=== PATIENT | male | born 1930 | race Caucasian/White ===

== ENCOUNTER 2017-05-24 09:52 | Inpatient (IN) ==
[2017-05-24] MEDS ORDERED: SALINE LOCK IV FLUID XX ONE (11:46)
[2017-05-24] MEDS ORDERED: PNEUMOVAX 23 IM ONE (12:15)
--- NOTE | 2017-05-24 12:15 | Diag Imaging Result Doc PS360 ---
EXAM: CHEST-1 VIEW HISTORY: dyspnea TECHNIQUE: Portable COMPARISON: 01/26/2015 FINDINGS: There is a left-sided pacemaker and there are sternal wires. The heart is enlarged. There is a dense infiltrate in the mid left lung. The vessels are not distended. No pleural effusions identified. IMPRESSION: Pneumonia in the mid left lung. Follow-up films recommended. Electronically signed by Booker Solorio 05/24/2017 12:13 PM
[2017-05-24 12:58] LABS: BASO% 0.1 % (0.0-0.8); HEMATOCRIT 32.5 % (42.0-52.0); HEMOGLOBIN 11.2 g/dL (14.0-18.0); IMM GRAN# 0.12 X1000 (0.0-0.04); IMM GRAN% 0.7 % (0.0-0.5); LYMPH# 0.47 X1000 (1.2-3.4); LYMPH% 2.8 % (20.5-51.1); MANUAL DIFF NEEDED? YES; MCH 31.1 PG (27-31); MCHC 34.5 g/dL (33-37); MCV 90.3 FL (81-99); MONO# 0.88 X1000 (0.11-0.59); MONO% 5.3 % (1.7-9.3); MPV 9.5 FL (7.4-10.4); NEUT% 91.1 % (42.2-75.2); PLT 205 X1000 (130-400)
[2017-05-24 13:28] LABS: ALBUMIN 3.5 g/dL (3.5-5.0); CALCIUM 9.3 mg/dL (8.8-10.2); POTASSIUM 4.2 mmol/L (3.5-5.1); TOTAL BILIRUBIN 0.4 mg/dL (0.20-1.00); TOTAL PROTEIN 6.4 g/dL (6.3-8.3)
[2017-05-24 13:54] LABS: LYMPHS 8 % (21-51); MONO 1 % (1-9)
[2017-05-24] MEDS ORDERED: LEVAQUIN 250 MG/D5W 250 MG/50 ML IVPB IV SCH (14:30)
[2017-05-24 14:51] LABS: URINE MICRO REVIEW NEEDED? NO; URINE SOURCE VOIDED
[2017-05-24 14:57] LABS: BILIRUBIN URINE NEGATIVE (NEGATIVE); BLOOD URINE NEGATIVE (NEGATIVE); COLOR STRAW; GLUCOSE URINE NEGATIVE (NEGATIVE); LEUKOCYTES URINE NEGATIVE (NEGATIVE); NITRITE URINE NEGATIVE (NEGATIVE); PROTEIN URINE NEGATIVE (NEGATIVE); SP GRAVITY URINE 1.008; TURBIDITY URINE CLEAR (CLEAR); UROBILINOGEN URINE NORMAL (NORMAL)
[2017-05-24 15:00] LABS: UR EPITHELIAL CELLS <10 /HPF (<10); URINE BACTERIA NEGATIVE /HPF; URINE RBC <10 /HPF (<10); URINE WBC <10 /HPF (<10)
--- NOTE | 2017-05-24 15:30 | Diag Imaging Result Doc PS360 ---
EXAM: US RENAL 2 (RETROPER) COMPLETE HISTORY: decreased renal function TECHNIQUE: COMPARISON: None. FINDINGS: The right kidney measures 11.9 x 4.6 x 5.0 cm. Borderline mild increased echogenicity. No stone or hydronephrosis. There is a 1.2 cm cyst in the upper pole. Urinary bladder is normal moderately distended and appears normal. The left kidney measures 10.5 x 5.3 x 5.3 cm. Borderline mild increased echogenicity. No stone or hydronephrosis. No renal mass. IMPRESSION: Borderline mild increased echogenicity, otherwise normal exam. Electronically signed by Booker Solorio 05/24/2017 3:28 PM
--- NOTE | 2017-05-24 15:34 | CONSULTATION ---
DATE OF CONSULTATION: 05/24/2017 REASON FOR ADMISSION: Pneumonia, edema, acute kidney injury. REASON FOR CONSULTATION: Acute kidney injury, edema. CONSULTING PHYSICIAN: Dr. Durga Evangelista. HISTORY OF PRESENT ILLNESS: This is an 86-year-old gentleman admitted to the hospital secondary to shortness of breath, weakness, worsening edema over several days. He fell about 3 weeks ago and has been doing poorly since. Laboratory on admission indicated that he had a white count of 16.6, a sodium of 132, a BUN 162 creatinine of 3.1. He had a chest x-ray that showed pneumonia in the mid left lung. We have been asked to see him for his edema and worsening renal function. The only other creatinine we have available in the system he is one from 2015 where his creatinine was 2.1. The patient has never been told that he has chronic kidney disease or renal insufficiency. He states that he has been given medicine "to help his kidneys". States that over the last month he has been having worsening edema and has had multiple visits to his primary with no resolution. He states that he has become simply too weak to walk and he gets dizzy when he stands up and over the last several days has just really lost his appetite and is only eating bites occasionally. He states that he still has adequate urine output. He has noticed worsening swelling of the lower extremities as well as edema to his abdomen, stating that he could not button his pants today and last week he could. Complains of shortness of breath and a cough. No chest pain. No dizziness when standing. He has not had any loss of consciousness. PAST MEDICAL HISTORY: Hypertension. Atrial fibrillation. He has a hernia. He has chronic edema. Gout. BPH. Hyperlipidemia. CABG. Cardiomegaly. ALLERGIES: No known drug allergies. HOME MEDICATIONS: Norel. Naproxen sodium. Methocarbamol. Hydrocodone. Acetaminophen. Isosorbide. Lasix. Plavix. Metoprolol. Uloric. Spironolactone. Rosuvastatin calcium. Prednisone. Klor-Con. Flonase. Flomax. FAMILY HISTORY: Noncontributory. SOCIAL HISTORY: He is a former smoker. No current ETOH or illicit drug use. He has a son who is in attendance with him today. REVIEW OF SYSTEMS: Pertinent positives noted above in the HPI. PHYSICAL EXAMINATION: Vital Signs: Temperature 97.4 degrees, pulse 66, respiratory rate 17, blood pressure 99/42, intake and output have not been measured. General: This is an ill- appearing elderly gentleman sitting up in bed. He is awake, alert, able to give appropriate history. HEENT: Normocephalic, atraumatic. Conjunctivae are pale. Oral mucosa is moist. Neck: Supple. Trachea midline. JVD noted in a reclined position. Cardiovascular: Reveals a regular rate and rhythm. There is no murmur appreciated. He has some decreased heart sounds noted. Pulmonary: He has some rales bilaterally. No wheeze. He has equal excursion. Abdomen: Round, distended, soft. Positive bowel sounds. Positive fluid hepatojugular wave. : Not inspected. He is voiding. Extremities: He has 2+ pretibial edema. He has 3+ pedal edema and some dependent edema to the backs of the thighs. Integumentary: Skin is warm and dry. Pale. Thin. Neurologic: Grossly nonfocal. LABORATORY DATA: WBC of 16.6, hemoglobin 11.2, hematocrit 32.5 and platelet count of 205,000. Sodium 132, potassium 4.2, CO2 26, BUN 162, creatinine 3.1. IMAGING: Pneumonia right mid left lung. ASSESSMENT AND PLAN: 1. Acute kidney injury overlying CKD. Unclear of the patient's baseline creatinine. The only laboratory value we have is from 2 years ago with an abnormal creatinine of 2.1. We will attempt to obtain records from Dr. Evangelista office. The patient is to go for a renal ultrasound today. We will go ahead and order urine studies to stratify his current renal function and possible proteinuria. Check an albumin . Of note, he has an extremely elevated BUN with no real clear etiology. He has no absolute indication for intervention at this time. We will have the following workup as noted and check laboratory in the morning. 2. Pneumonia. He is on Levaquin q. 24 hours With current renal function, his Levaquin should q. 48. 3. Edema. He has some significant peripheral edema as well as what appears to be ascites. He has a normal AST and ALT. His albumin is 3.5. He normally takes Lasix 40 mg twice a day. 4. Electrolytes, acid-base balance. These are acceptable. Thank you for the consult. Dictated by KAT Bermeo for Mark Saucedo MD Patient seen, data reviewed, discussed with Karin Sheppard on 05/24/17. I agree with the above assessment and plan of care. cc: MD Durga Villatoro MD [facility]
[2017-05-24 15:38] LABS: UR CREAT RANDOM 32.8 mg/dL (14-26); UR PROT RANDOM < 4.0 mg/dL; UR SODIUM 80 mmoll
[2017-05-24] MEDS: NORCO-7.5 PO PRN (16:05)
--- NOTE | 2017-05-24 16:13 | EKG Report ---
Test Performed on : 05/24/2017 1:13:27 PM Test Reason : dyspnea Blood Pressure : / mmHG Vent. Rate : 080 BPM Atrial Rate : 088 BPM P-R Int : 000 ms QRS Dur : 168 ms QT Int : 428 ms P-R-T Axes : 000 176 017 degrees QTc Int : 493 ms Atrial fibrillation. Right bundle branch block Possible Lateral infarct , age undetermined Inferior infarct (cited on or before 09-APR-2008) Abnormal ECG When compared with ECG of 09-APR-2008 01:23, Questionable change in QRS axis Nonspecific T wave abnormality now evident in Anterior leads Confirmed by Juan Pablo Moore DO ([id number]) on 05/27/2017 8:33:07 AM
--- NOTE | 2017-05-24 18:18 | HISTORY AND PHYSICAL ---
CHIEF COMPLAINT: Extreme weakness, dark bowel movement, shortness of breath. PRESENT ILLNESS: This is one of several [facility] admissions for this 86-year-old, white man with known coronary artery disease, atrial fibrillation, COPD, and acute renal failure who had a dark bowel movement last evening and presented to the office today. He had 3+ ankle edema and was in a wheelchair. He was too weak to stand. He is admitted for further evaluation and treatment. There is history of coronary artery bypass grafting in 2009. He had angioplasty and stenting of the left circumflex and distal left main. These were performed with bare metal stents. He has a pacemaker that was checked in February 2017 and was functioning appropriately. There is history of 5 cm abdominal aortic aneurysm. PAST MEDICAL HISTORY: No recent hospitalizations or surgery. PRESENT MEDICATIONS: Metoprolol 50 mg ER 1 daily, isosorbide 30 mg 1 daily, Lasix 40 mg b.i.d., Klor-Con 10 mEq b.i.d., Crestor 20 mg at bedtime, Coolin 5/325 q.4 hours p.r.n. pain, and prednisone 10 mg once daily. ALLERGIES: None known. REVIEW OF SYSTEMS: Significant for increasing BUN and creatinine over the past few months. In November his BUN was 60 and creatinine 2.0. On 04/04/2017 his BUN was 84, creatinine 2.2. On 05/08/2017 BUN was 113, creatinine 3.3. He has had persistent 3+ ankle edema over the past month. He fell a couple of weeks ago and complained with right hip pain. He was tender in the right SI joint and was given Depo-Medrol and Marcaine on 05/18. There was improvement for about 4 days and then he called complaining of increased pain. Prednisone was started at that time. He had a dark bowel movement early this morning. This could have been related to the prednisone. Hemoglobin in the office was 10.6. FAMILY HISTORY: Significant for hypertension and heart disease. SOCIAL HISTORY: He is single, a , and lives alone. He continues to smoke despite contrary advice. There is no history of recent alcohol usage. DIAGNOSTIC DATA: Chest x-ray revealed left lower lobe infiltrate. White blood count was elevated at 16,700 with 91% neutrophils. PHYSICAL EXAMINATION: VITAL SIGNS: Temperature 98.3 degrees, heart rate 84, respirations 17, blood pressure 101/58. Pressure in the office was 80/60. O2 saturation on room air is 98%. HEENT: He wears glasses. Tympanic membranes without inflammation. Pharynx benign. NECK: Supple with no mass or lymphadenopathy. HEART: Regular in rate and rhythm with no murmur, rub or gallop. LUNGS: No appreciable rales. ABDOMEN: Soft with no mass, tenderness, or organomegaly. EXTREMITIES: 3+ ankle edema. RECTAL AND GENITALIA: Deferred. IMPRESSION: Acute renal failure, chronic renal disease stage 3, left lower lobe pneumonia, melena, possible gastritis related to prednisone, atrial fibrillation, coronary artery disease, COPD, abdominal aortic aneurysm. PLAN: Admit for treatment with intravenous antibiotics, and renal consult for evaluation of decreasing renal function. cc: Durga Evangelista MD
[2017-05-24] MEDS: RESTORIL PO PRN (21:11)
[2017-05-25 07:32] LABS: CALCIUM 9.1 mg/dL (8.8-10.2)
[2017-05-25] MEDS ORDERED: NS 1,000 ML IV SCH (07:42)
--- NOTE | 2017-05-25 08:31 | PROGRESS NOTE ---
DATE: 05/25/2017 VITAL SIGNS: Vital signs stable with temperature 97.4 degrees, heart rate 69, respiration 19, blood pressure 108/51, O2 saturation on room air 96%. LABORATORY: Hematocrit 30.5. Sodium 131, potassium 4.0, BUN 166, creatinine 2.6. GFR estimated 24. Glucose 108, phosphorus 5.4, albumin 3.0. SUBJECTIVE: The patient is having no respiratory difficulty. Lungs are clear to auscultation. Edema is decreased with less edema on the left. There is still pitting change in his ankles and lower tibial area bilaterally. Discussion is made with the radiologists concerning imaging study to evaluate the renal arteries with his history of aortic aneurysm. Renal artery ultrasound is ordered. cc: Durga Evangelista MD
[2017-05-25] MEDS ORDERED: IMDUR PO SCH ×2 (09:00)
[2017-05-25] MEDS: PLAVIX PO SCH (09:25)
[2017-05-25] MEDS: NORCO-7.5 PO PRN (09:25)
--- NOTE | 2017-05-25 11:50 | PROGRESS NOTE ---
DATE: 05/25/2017 SUBJECTIVE: He is perhaps a little confused today. He states he feels better overall, though. No nausea or vomiting. No shortness of breath. OBJECTIVE: Vital Signs: Blood pressure 96/55, heart rate 89, respirations 17. Afebrile. Intake 360 mL. Output 325 mL. General: No acute distress. Skin: Warm and dry. HEENT: Conjunctivae are pink. Pupils are equal. Neck: Neck veins are not appreciated. Trachea is midline. Heart: Regular without gallops. Lungs: Have equal breath sounds. No crackles or wheezes. Abdomen: Soft, nontender. Bowel sounds are present. Extremities: Have 1+ edema. No clubbing or cyanosis. LABORATORY/DIAGNOSTIC DATA: Sodium 131, potassium 4.0, chloride 90, bicarbonate 26, BUN 166, creatinine 2.6. Hemoglobin 11.2. Renal ultrasound: Right kidney 11.9 cm. Left kidney 10.5 cm. IMPRESSION: 1. Acute kidney injury. Questionable baseline chronic kidney disease. His ultrasound looked normal. His labs are improved overnight. We will allow him to get 1 L of normal saline today and then observe his response. His urine studies demonstrate no proteinuria and his urine sodium was elevated at 80. Therefore, not supportive of intravascular volume depletion. 2. Elevated BUN. Presumably related to bleeding. Hemoglobin has dropped only modestly since admission. Stool guaiac is pending. cc: MD Durga Villatoro MD
--- NOTE | 2017-05-25 12:00 | Diag Imaging Result Doc PS360 ---
EXAM: DUPLEX RENAL ARTY OR VEIN LMTD HISTORY: worsening renal function TECHNIQUE: COMPARISON: None. FINDINGS: Limited duplex renal artery exam due to the patient's large size. The kidneys are borderline slightly hyperechoic and there are scattered scattered cysts similar to the prior study. No hydronephrosis. No solid mass. IMPRESSION: Limited exam due to the patient's body habitus. Incomplete imaging of the renal arteries. Electronically signed by Booker Solorio 05/25/2017 11:58 AM
[2017-05-25] MEDS: DUONEB (A & A) INH PRN ×2 (15:16→20:28)
[2017-05-26] MEDS: NORCO-7.5 PO PRN ×3 (01:42→21:12)
[2017-05-26] MEDS: DUONEB (A & A) INH PRN ×3 (01:51→15:20)
[2017-05-26 06:57] LABS: EOS# 0.02 X1000 (0.0-0.7); EOS% 0.2 % (0.0-10.0); HEMATOCRIT 28.1 % (42.0-52.0); HEMOGLOBIN 9.5 g/dL (14.0-18.0); IMM GRAN% 0.8 % (0.0-0.5); LYMPH# 0.52 X1000 (1.2-3.4); LYMPH% 4.3 % (20.5-51.1); MANUAL DIFF NEEDED? YES; MCH 30.6 PG (27-31); MCHC 33.8 g/dL (33-37); MCV 90.6 FL (81-99); MONO# 0.95 X1000 (0.11-0.59); MONO% 7.9 % (1.7-9.3); MPV 9.9 FL (7.4-10.4); NEUT% 86.8 % (42.2-75.2); PLT 186 X1000 (130-400)
[2017-05-26 07:21] LABS: CALCIUM 8.8 mg/dL (8.8-10.2); POTASSIUM 3.6 mmol/L (3.5-5.1)
[2017-05-26 07:27] LABS: BANDS 4 % (0-1); LYMPHS 4 % (21-51); MONO 4 % (1-9)
[2017-05-26] MEDS ORDERED: NS 1,000 ML IV ONE (09:08)
[2017-05-26] MEDS ORDERED: MILK OF MAGNESIA PO ONE (12:05)
[2017-05-26] MEDS: PLAVIX PO SCH (12:33)
--- NOTE | 2017-05-26 13:14 | Diag Imaging Result Doc PS360 ---
EXAM: CHEST-1 VIEW INDICATION: pneumonia TECHNIQUE: One view COMPARISON: 05/24/2017 FINDINGS: The dense infiltrate at the mid to upper left lung zone is stable. There are no new consolidations. Cardiac silhouette is stable. IMPRESSION: Stable chest. Electronically signed by Carl Lazar 05/26/2017 1:12 PM
--- NOTE | 2017-05-26 13:29 | PROGRESS NOTE ---
DATE: 05/26/2017 SUBJECTIVE: He is still complaining of pain in the left hip. He has not been out of bed. He has not had a bowel movement since she came into the hospital. No chills or fevers. He has been able eat his lunch. OBJECTIVE: Vital Signs: Blood pressure 94/52, heart rate 107, respirations 20, afebrile. Intake 600 mL. Output 1.6 L. PHYSICAL EXAMINATION: General: No acute distress. Skin: Warm and dry. Eyes: Conjunctivae are pink and moist. Neck: Neck veins are not distended. Oropharynx is dry. Heart: Regular with an S4. No S3. No murmurs. Lungs: Have equal breath sounds. No crackles or wheezes. Abdomen: Soft, nontender. Bowel sounds are present. Extremities: Have 1+ edema primarily around the hips and the elbows. No clubbing or cyanosis. LABORATORY DATA: Sodium 134, potassium 3.6, chloride 93, bicarbonate 28, BUN 143, creatinine 2.3. Hemoglobin 9.5. IMPRESSION: 1. Transient hypotension overnight. Improved. He is receiving IV fluids and we will observe his response. 2. Fall in hemoglobin. He has not had any bowel movement, so it is unlikely that this is a large gastrointestinal bleed. 3. Acute kidney injury. BUN and creatinine are progressively improving. cc: MD Durga Villatoro MD
[2017-05-26] MEDS ORDERED: LEVAQUIN 250 MG/D5W 250 MG/50 ML IVPB IV SCH (16:00)
[2017-05-26] MEDS ORDERED: CALMOSEPTINE OINTMENT TOP PRN (18:26)
[2017-05-26] MEDS: RESTORIL PO PRN (20:36)
[2017-05-26] MEDS: NS 1,000 ML IV SCH (20:58)
[2017-05-26] MEDS: MIRALAX PO SCH (20:58)
[2017-05-27] MEDS: NORCO-7.5 PO PRN ×3 (06:54→20:36)
[2017-05-27 07:08] LABS: MANUAL DIFF NEEDED? NO
[2017-05-27 07:43] LABS: BASO% 0.1 % (0.0-0.8); EOS# 0.06 X1000 (0.0-0.7); EOS% 0.5 % (0.0-10.0); HEMATOCRIT 27.1 % (42.0-52.0); HEMOGLOBIN 8.9 g/dL (14.0-18.0); IMM GRAN# 0.17 X1000 (0.0-0.04); IMM GRAN% 1.5 % (0.0-0.5); MCH 30.5 PG (27-31); MCHC 32.8 g/dL (33-37); MCV 92.8 FL (81-99); MONO# 0.97 X1000 (0.11-0.59); MONO% 8.3 % (1.7-9.3); NEUT% 83.6 % (42.2-75.2); PLT 207 X1000 (130-400); RBC 2.92 XMIL (4.7-6.1)
[2017-05-27 07:50] LABS: ALBUMIN 2.7 g/dL (3.5-5.0); CALCIUM 9.4 mg/dL (8.8-10.2); POTASSIUM 4.2 mmol/L (3.5-5.1)
[2017-05-27] MEDS: NS 1,000 ML IV SCH ×3 (08:31→20:37)
[2017-05-27] MEDS ORDERED: DULCOLAX PR ONE (09:27)
[2017-05-27] MEDS: IMDUR PO SCH (10:35)
[2017-05-27] MEDS: DUONEB (A & A) INH PRN ×3 (12:39→20:54)
[2017-05-27] MEDS: RESTORIL PO PRN (20:36)
[2017-05-28] MEDS: MIRALAX PO SCH ×2 (03:25→21:14)
[2017-05-28] MEDS: NS 1,000 ML IV SCH (03:26)
[2017-05-28 06:55] LABS: MANUAL DIFF NEEDED? NO
[2017-05-28] MEDS: DUONEB (A & A) INH PRN ×2 (07:20→21:12)
[2017-05-28 07:22] LABS: BASO% 0.2 % (0.0-0.8); EOS# 0.04 X1000 (0.0-0.7); EOS% 0.3 % (0.0-10.0); HEMATOCRIT 27.3 % (42.0-52.0); HEMOGLOBIN 8.8 g/dL (14.0-18.0); IMM GRAN# 0.25 X1000 (0.0-0.04); LYMPH# 0.59 X1000 (1.2-3.4); LYMPH% 4.7 % (20.5-51.1); MCH 30.7 PG (27-31); MCHC 32.2 g/dL (33-37); MCV 95.1 FL (81-99); MONO# 0.99 X1000 (0.11-0.59); MONO% 7.8 % (1.7-9.3); PLT 209 X1000 (130-400); RBC 2.87 XMIL (4.7-6.1)
[2017-05-28 07:37] LABS: POTASSIUM 4.2 mmol/L (3.5-5.1)
--- NOTE | 2017-05-28 07:44 | Diag Imaging Result Doc PS360 ---
CHEST-PORTABLE - 05/28/2017 INDICATION: Pneumonia TECHNIQUE: COMPARISON: 05/26/2017 FINDINGS: Stable pacemaker. Stable sternotomy wires. Stable focal airspace opacity in the left midlung with some infiltrate in the left lung base. There is a trace right pleural effusion stable from prior. Stable cardiomegaly and pulmonary vascular congestion. IMPRESSION: No change from prior. Electronically signed by Joaquin Serrano 05/28/2017 7:42 AM
[2017-05-28] MEDS ORDERED: AYR NASAL SPRAY NAS PRN (08:31)
--- NOTE | 2017-05-28 08:37 | PROGRESS NOTE ---
DATE: 05/28/2017 VITAL SIGNS: Temperature 96.9 degrees, heart rate 90, respirations 20, blood pressure 130/70. Is and Os: Negative 1150 in the last 24 hours. LABORATORY: Hemoglobin 8.8, hematocrit 27.3, white blood count 12,600. Sodium 137, potassium 4.2, BUN 72, creatinine 1.6, glucose 110, albumin 3. Chest x-ray reveals persistent left pneumonia. IMPRESSION: The patient is short of breath with activity and getting up out of bed. PLAN: Continue IV Levaquin. Stool for blood was positive. Plan to continue to increase activity with physical therapy. cc: Durga Evangelista MD
[2017-05-28] MEDS: IMDUR PO SCH (08:53)
[2017-05-28] MEDS: HEMOCYTE PLUS CAPSULE PO SCH (08:53)
--- NOTE | 2017-05-28 12:16 | PROGRESS NOTE ---
DATE: 05/28/2017 TIME SEEN: 05/22. SUBJECTIVE: Mr. Topete is resting quietly in bed. He remains alert and oriented. He denies chest pain or increased work of breathing. He has finished his breakfast this morning. OBJECTIVE: His most recent vital signs are temperature 98.1 degrees, blood pressure 106/60, heart rate 108, respirations 16. He is on room air. Last recorded saturation 94%. He has had 800 in. He has had 1950 out per void. LABORATORY: Sodium 137, potassium 4.2, chloride 100, CO2 27, BUN 72, creatinine 1.6, glucose 110, anion gap 10, calcium 9, phosphorus 2.5, albumin 3, white count 12.64. Hemoglobin 8.8, hematocrit 27.3 with a platelet count of 209,000. PHYSICAL EXAMINATION: General: This is an 86-year-old white male. He is sitting up in bed. He is eating his breakfast. He appears chronically ill. He is in no acute distress. Skin: Warm and dry. HEENT: Normocephalic, atraumatic. Conjunctivae pale. He has ALFREDO. Mucous membranes moist. Neck: Supple. Trachea midline. No JVD. Cardiovascular: He is regular rate and rhythm. He has a positive S4. He is without a gallop. Lungs: Clear to auscultation anteriorly. Equal excursion on room air. Abdomen: Soft, nontender. Positive bowel sounds. Extremities: He has 1+ edema. No clubbing or cyanosis. This edema does go up into the hip range. He does have some edema noted to dependent elbows. Genitourinary: Patient has been voiding adequate amounts. Neurological: He is alert and oriented times person and place. ASSESSMENT AND PLAN: 1. Acute kidney injury. Patient's BUN has continued to improve secondary to IV fluid infusion. He has had an adequate urine out. It is felt that his BUN had been elevated secondary to heme positive stools and blood loss. This has now slowed down. He was 8.9 yesterday and 8.8 today. We will stop his IV fluids. Secondary to his improvement, we will sign off and be available as needed. 2. Electrolytes. These are stable. 3. Acid-base balance. This is stable. 4. Anemia. Again, patient is noted to have heme-positive stools. This is stabilized with a possible referral to GI to be followed by the primary care team. 5. I would to thank you for allowing us to follow with this patient. Dictated by KAT Trejo for Mark Saucedo MD Patient seen, data reviewed, discussed with Homero Kumar on 05/28/17. I agree with the above assessment and plan of care. cc: KAT Trejo MD Robert Allen, MD [facility]PITALLeticia
[2017-05-28] MEDS: LEVAQUIN 750 MG/D5W 750 MG/150 ML IVPB IV SCH (16:40)
[2017-05-28] MEDS: NORCO-7.5 PO PRN (21:14)
[2017-05-28] MEDS: RESTORIL PO PRN (21:17)
[2017-05-29] MEDS: NORCO-7.5 PO PRN ×2 (05:58→20:20)
[2017-05-29 06:58] LABS: BASO% 0.1 % (0.0-0.8); EOS# 0.13 X1000 (0.0-0.7); EOS% 0.9 % (0.0-10.0); HEMATOCRIT 28.6 % (42.0-52.0); HEMOGLOBIN 9.2 g/dL (14.0-18.0); IMM GRAN# 0.29 X1000 (0.0-0.04); IMM GRAN% 2.1 % (0.0-0.5); LYMPH# 0.92 X1000 (1.2-3.4); LYMPH% 6.7 % (20.5-51.1); MANUAL DIFF NEEDED? YES; MCH 30.8 PG (27-31); MCHC 32.2 g/dL (33-37); MCV 95.7 FL (81-99); MONO# 1.22 X1000 (0.11-0.59); MONO% 8.9 % (1.7-9.3); MPV 9.9 FL (7.4-10.4); NEUT% 81.3 % (42.2-75.2); PLT 240 X1000 (130-400); RBC 2.99 XMIL (4.7-6.1)
[2017-05-29 07:11] LABS: ALBUMIN 3.1 g/dL (3.5-5.0); CALCIUM 9.3 mg/dL (8.8-10.2); POTASSIUM 4.3 mmol/L (3.5-5.1)
[2017-05-29 07:18] LABS: LYMPHS 6 % (21-51); MONO 2 % (1-9)
[2017-05-29 07:20] LABS: HYPOCHROM 1+
[2017-05-29] MEDS: DUONEB (A & A) INH SCH ×4 (08:30→20:10)
--- NOTE | 2017-05-29 08:45 | PROGRESS NOTE ---
DATE: 05/29/2017 VITAL SIGNS: Temperature 97.5, heart rate 112, respirations 14, blood pressure 116/51, O2 saturation 98% on room air. LABORATORY DATA: Hemoglobin 9.2, hematocrit 28.6, white blood count 13,800. Sodium 136, potassium 4.3, BUN 57, creatinine 1.8, phosphorus 2.4, albumin 3.1. IMPRESSION: Patient is feeling fairly well. He continues to be short of breath at times. There is edema in both forearms. IV seems patent without infiltration. PLAN: Start nebulizer treatments with albuterol and Atrovent, social service consult is made for rehab placement. Chest x-ray will be repeated on morning and rehab transfer will be considered depending on his condition. cc: Durga Evangelista MD
[2017-05-29] MEDS: IMDUR PO SCH (10:31)
[2017-05-29] MEDS: HEMOCYTE PLUS CAPSULE PO SCH (10:31)
[2017-05-29] MEDS: PLAVIX PO SCH (10:33)
[2017-05-29] MEDS: RESTORIL PO PRN (20:20)
[2017-05-29] MEDS: MIRALAX PO SCH (20:21)
[2017-05-30] MEDS: DUONEB (A & A) INH SCH ×4 (03:13→22:34)
[2017-05-30] MEDS: DUONEB (A & A) INH PRN (07:23)
[2017-05-30] MEDS: PLAVIX PO SCH (08:00)
[2017-05-30] MEDS: IMDUR PO SCH (08:00)
[2017-05-30] MEDS: HEMOCYTE PLUS CAPSULE PO SCH (08:00)
--- NOTE | 2017-05-30 09:09 | PROGRESS NOTE ---
DATE: 05/30/2017 Vital signs are stable with temperature 98 degrees, heart rate 107, respiration 18, blood pressure 117/53, O2 saturation on room air 99%. The patient has less edema in both legs and arms. Chest is fairly clear. O2 saturation continues to be good. He has been ambulatory with physical therapy. Lab and chest x-ray will be repeated tomorrow morning. Rehabilitation is pending. Hopefully, a bed will be available tomorrow for transfer. cc: Durga Evangelista MD
[2017-05-30] MEDS: NORCO-7.5 PO PRN (21:00)
[2017-05-30] MEDS: LEVAQUIN 750 MG/D5W 750 MG/150 ML IVPB IV SCH (21:00)
[2017-05-30] MEDS: RESTORIL PO PRN (21:00)
[2017-05-30] MEDS: MIRALAX PO SCH (21:00)
[2017-05-31] MEDS: DUONEB (A & A) INH SCH ×4 (03:39→22:26)
[2017-05-31 07:40] LABS: CALCIUM 9.1 mg/dL (8.8-10.2); POTASSIUM 3.9 mmol/L (3.5-5.1)
--- NOTE | 2017-05-31 08:23 | PROGRESS NOTE ---
DATE: 05/31/2017 VITAL SIGNS: Temperature 97.8 degrees, heart rate is 108, respirations 18, blood pressure 106/64, O2 saturation on room air of 96%. LABORATORY DATA: Hematocrit 27.4. Sodium 136, potassium 3.9, BUN 37, creatinine 1.6. SUBJECTIVE: Patient is feeling weak, but able to get up with assistance. He has had some hesitancy and difficulty initiating his urine stream. Urine output is less. I and O last shift was -620. He is eating fairly well. Chest x-ray is pending. PLAN: Rehab will be considered today if a bed becomes available. cc: Durga Evangelista MD
[2017-05-31] MEDS: NORCO-7.5 PO PRN ×2 (08:53→21:17)
[2017-05-31] MEDS: HEMOCYTE PLUS CAPSULE PO SCH (08:53)
[2017-05-31] MEDS: IMDUR PO SCH (08:53)
[2017-05-31] MEDS: PLAVIX PO SCH (08:53)
[2017-05-31] MEDS: FLOMAX PO SCH (08:55)
--- NOTE | 2017-05-31 09:51 | Diag Imaging Result Doc PS360 ---
EXAM: CHEST-1 VIEW HISTORY: pneumonia TECHNIQUE: AP portable upright at 0915 COMMENT: There is a persistent opacity in the upper mid left lung which has been present since at least 05/24/2017 and has not changed appreciably. There is cardiomegaly. There is a pacemaker on the left. IMPRESSION: Stable volume loss and opacity on the left which may be due to postobstructive pneumonitis and atelectasis. The possibility of underlying endobronchial mass cannot be excluded and further evaluation is recommended. Electronically signed by Kendrick Russell 05/31/2017 9:48 AM
--- NOTE | 2017-05-31 11:46 | Diag Imaging Result Doc PS360 ---
EXAM: CT THORAX W/O CONTRAST INDICATION: lung mass TECHNIQUE: Dose reduction protocol was used. COMPARISON: None. FINDINGS: As per the patient's history, there is a prominent lung mass involving the lingula that measures approximately 6.9 x 6.2 cm axially. Its exact dimensions are difficult to measure without addition of IV contrast. There does appear to be mild central cavitation. There is opacity surrounding the mass suggesting perilesional pneumonitis. On the right, there is a small pleural effusion and there is right basilar atelectasis. There is milder subsegmental atelectasis at the left lung base. There is marked cardiomegaly. There are shotty small mediastinal lymph nodes. There is extensive aortic and coronary artery calcification. There are CABG changes. There is nothing to suggest local bony metastatic disease. 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 2.Small right pleural effusion and bibasilar atelectasis, worse on the right. 3.Other incidental/nonacute findings detailed above. Electronically signed by Carl Lazar 05/31/2017 11:43 AM
--- NOTE | 2017-05-31 18:11 | CONSULTATION ---
DATE OF CONSULTATION: 05/31/2017 PULMONARY CONSULTATION REQUESTING PHYSICIAN: Durga Evangelista MD. REASON FOR CONSULTATION: Lung mass. HISTORY OF PRESENT ILLNESS: Mr. Topete is an 86-year-old, white male with COPD, extensive heart disease (see below), chronic kidney disease, who was admitted to the hospital on 05/24/2017 with melena and acute renal failure. His hemoglobin stabilized, the melena stopped and his kidney function has improved during his hospital stay. Chest x-ray was performed which reveals a mass- like area in the left mid lung zone. This did not improve on follow-up x-rays. CT scan of the thorax was performed today which reveals a 6.9 x 6.2 cm mass involving the lingula and left upper lobe with apparent area of central necrosis. No evidence of metastatic disease was identified. PAST MEDICAL HISTORY: 1. COPD with chronic hypoxemic respiratory failure. 2. Coronary artery disease status post coronary artery bypass grafting with subsequent stent placement in the left circumflex and left main artery. 3. Ischemic cardiomyopathy with an ejection fraction of 30%. 4. Pulmonary hypertension with a PA pressure of 60. 5. Multivalvular heart disease with an echocardiogram in 2014 revealing 3+ mitral regurgitation and 2+ atrial and aortic insufficiency. 6. 4.8 x 4.4 cm abdominal aortic aneurysm. 7. Status post pacemaker-defibrillator placement. 8. Dyslipidemia. 9. Chronic kidney disease. 10. Benign prostatic hypertrophy. 11. Gout. SOCIAL HISTORY: Extensive tobacco history. No alcohol use listed. FAMILY HISTORY: Noncontributory on current presentation. REVIEW OF SYSTEMS: Notable for cough, generalized weakness, chronic lower extremity edema, shortness of breath with minimal exertion. PHYSICAL EXAMINATION: General: Reveals a chronically ill-appearing, white male in no distress. Vital Signs: BP 108/77, heart rate 75, respiration rate 18, afebrile. HEENT: Pupils are equal and reactive. Oropharynx is clear. Neck: Supple. Chest: Reveals bibasilar crackles. He has prolonged expiratory phase. Cardiac Examination: Irregularly irregular with 2/6 systolic ejection murmur at right upper border and left lower sternal border. Abdomen: Soft without hepatosplenomegaly. Extremities: Reveal trace to 1+ edema. LABORATORIES: Chemistries 136, potassium 3.9, chloride 96, bicarbonate 27, BUN 37, creatinine 1.6, carcinoembryonic antigen normal at 2.4. White blood count 13.7, hemoglobin 9.2, platelet count 240,000. IMPRESSION: An 86-year-old with lung mass in the lingula/left upper lobe, extensive cardiac dysfunction including ischemic cardiomyopathy, multivalvular heart dysfunction, atrial fibrillation, significant pulmonary hypertension, significant COPD. Patient is an extremely poor surgical candidate and would not tolerate a thoracotomy with left upper lobectomy. The patient would like a diagnosis even if he cannot undergo surgery. I believe the diagnosis can be obtained with bronchoscopy and biopsies. However, the patient is currently on Plavix and this will need to be discontinued for at least 7 days. Bronchoscopy can be performed as an outpatient in 7 days or it can be delayed if he decides to go to a physical rehabilitation facility. RECOMMENDATIONS: 1. Okay for transfer to the rehabilitation facility. 2. Anticipate outpatient bronchoscopy in 7 days or after he is discharged from the rehabilitation facility. 3. As mentioned above, Plavix will need to be discontinued for at least 1 week prior to his bronchoscopy. Discontinuing his Plavix is not without risk given his known prior stenting procedures. cc: MD Durga Corral MD
[2017-05-31] MEDS: RESTORIL PO PRN (21:17)
[2017-05-31] MEDS: MIRALAX PO SCH (21:18)
[2017-06-01] MEDS: DUONEB (A & A) INH SCH ×2 (03:33→08:33)
[2017-06-01 07:43] VITALS: BP 99/67
--- NOTE | 2017-06-01 09:02 | DISCHARGE SUMMARY ---
ADMISSION DATE: 05/24/2017 DISCHARGE DATE: 06/01/2017 FINAL DIAGNOSES: 1. Acute renal failure. 2. Gastrointestinal bleeding with anemia. 3. Left lower lobe pneumonia. 4. 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 5. Ischemic cardiomyopathy. 6. Coronary artery disease. DISCHARGE MEDICATIONS: Plavix is discontinued. He is to continue same home medications except Lasix, potassium, Jeannette, prednisone, and Naprosyn are discontinued. DISPOSITION: To rehab facility, [facility]. CONSULTATION: With Dr. Saucedo and Dr. Orozco. HISTORY: This is one of several [facility] admissions for this 86-year-old white man with increasing ankle edema and shortness of breath. He had several melenic stools for 2 days prior to admission. INITIAL LABORATORY: Hematocrit 30.5. BUN 143, creatinine 2.3, albumin 3.0. HOSPITAL COURSE: His hematocrit stabilized at 27. He had no further bleeding. Initially, Plavix was discontinued then restarted after bleeding resolved. BUN and creatinine yesterday were 37 and 1.6. Chest x-ray revealed a left lower lobe infiltrate. He was started on Levaquin. No cultures were done. After poor resolution of the left lower lobe infiltrate, CT scan was done of his chest. This revealed a left lower lung mass 6.9 x 6.2 cm. There was mild central cavitation. This was suggestive of malignant mass. No metastatic disease was noted. Dr. Orozco recommended bronchoscopy with biopsy, but this would need to be delayed until he had been off of Plavix for 7 days. Discussion is made with the patient and family and he is discharged to rehab today with plans for outpatient bronchoscopy after a week. He will continue multiple vitamin with iron. Hematocrit will be rechecked in a week. cc: Durga Evangelista MD
[2017-06-01] MEDS: IMDUR PO SCH (09:32)
[2017-06-01] MEDS: FLOMAX PO SCH (09:32)
[2017-06-01] MEDS: HEMOCYTE PLUS CAPSULE PO SCH (09:32)
[2017-06-01] MEDS: NORCO-7.5 PO PRN (09:32)
[2017-06-01] MEDS: PLAVIX PO SCH (09:33)
== END 2017-06-01 13:16 ==
LOC: P.DIRADM 09:52 → DIRADM 09:56 → 3N 11:05
PROVIDERS: ADMIT Family Medicine; ATTEND Family Medicine

== ENCOUNTER 2017-06-19 13:26 | Inpatient (IN) ==
[2017-06-19 15:09] LABS: MANUAL DIFF NEEDED? NO
[2017-06-19 15:12] LABS: BASO% 0.2 % (0.0-0.8); EOS# 0.02 X1000 (0.0-0.7); EOS% 0.2 % (0.0-10.0); HEMATOCRIT 29.9 % (42.0-52.0); HEMOGLOBIN 9.3 g/dL (14.0-18.0); IMM GRAN# 0.13 X1000 (0.0-0.04); LYMPH# 0.53 X1000 (1.2-3.4); LYMPH% 4.2 % (20.5-51.1); MCH 29.7 PG (27-31); MCHC 31.1 g/dL (33-37); MCV 95.5 FL (81-99); MONO# 1.24 X1000 (0.11-0.59); MONO% 9.8 % (1.7-9.3); MPV 9.4 FL (7.4-10.4); NEUT% 84.6 % (42.2-75.2); PLT 273 X1000 (130-400); RBC 3.13 XMIL (4.7-6.1)
--- NOTE | 2017-06-19 15:20 | Diag Imaging Result Doc PS360 ---
CHEST-2 VIEWS - 06/19/2017 INDICATION: CP TECHNIQUE: COMPARISON: 05/31/2017 FINDINGS: Lung volumes are slightly lower. Stable left dual-chamber pacemaker. Stable sternotomy wires. Stable cardiomegaly. Pulmonary vascularity is slightly increased. There is perhaps slight increase in the alveolar right perihilar infiltrate. Stable large infiltrate in the left midlung. There is a small right-sided effusion stable from prior. IMPRESSION: Worsening from prior. Electronically signed by Joaquin Serrano 06/19/2017 3:17 PM
[2017-06-19 15:22] LABS: INR 1.43; PROTIME 15.4 Seconds (9.2-11.7); PTT 29.5 Seconds (22.0-36.0)
--- NOTE | 2017-06-19 15:37 | EKG Report ---
Test Performed on : 06/19/2017 3:18:33 PM Test Reason : Chest Pain Blood Pressure : / mmHG Vent. Rate : 084 BPM Atrial Rate : 098 BPM P-R Int : 000 ms QRS Dur : 152 ms QT Int : 400 ms P-R-T Axes : 000 171 -12 degrees QTc Int : 472 ms Atrial fibrillation. Right bundle branch block Possible Lateral infarct (cited on or before 09-APR-2008) Inferior infarct (cited on or before 09-APR-2008) Abnormal ECG When compared with ECG of 24-MAY-2017 13:13, Nonspecific T wave abnormality no longer evident in Anterior leads Unconfirmed Result
--- NOTE | 2017-06-19 15:37 | PROVIDER DOCUMENTATION ---
HPI-Respiratory General - General Chief Complaint: Shortness of Breath Stated Complaint: SOB/ MASS/ PNEUMONIA Time Seen by Provider: 06/19/17 14:33 Source: patient, family Allergies/Adverse Reactions: Patient Allergies Allergy/AdvReac Type Severity Reaction Status Date / Time No Known Allergies Allergy Verified 06/19/17 14:21 Home Medications: Home Medication List Medication Instructions Recorded Confirmed Last Taken Type Febuxostat [Uloric] 80 mg PO DAILY 05/24/17 06/19/17 05/24/17 09:00 History Metoprolol Succinate 100 mg PO DAILY 05/24/17 06/19/17 05/24/17 09:00 History 100mg Rosuvastatin Calcium 20 mg PO HS 05/24/17 06/19/17 05/23/17 21:00 History 20 mg Spironolactone 25 mg PO DAILY 05/24/17 06/19/17 05/24/17 09:00 History 25mg Tamsulosin [Flomax] 0.4 mg PO DAILY 05/24/17 06/19/17 05/24/17 09:00 History 0.4 mg Albuterol 2.5MG/Ipratrop 0.5MG 3 ml INH Q8H PRN PRN #0 neb 06/01/17 06/19/17 Unknown Rx [Duoneb (A & A)] Albuterol 2.5MG/Ipratrop 0.5MG 3 ml INH [id number] neb 06/01/17 06/19/17 Unknown Rx [Duoneb (A & A)] Hydrocodone/APAP 7.5 mg/325 mg 1 each PO Q6H PRN PRN #0 tablet 06/01/17 Unknown Rx [[place]-7.5] Menthol/Zinc Oxide Ointment 1 gm TOP BID PRN PRN #0 tube 06/01/17 06/19/17 Unknown Rx [Calmoseptine Ointment] Multivit with Iron,Hematinic 1 each PO DAILY #30 tablet 06/01/17 06/19/17 Unknown Rx [Central-Jerardo] Arginine/Glutamine/Calcium Hmb 1 packet PO DAILY 06/19/17 06/19/17 Unknown History [Goldy Packet] Magnesium Hydroxide [Milk of 30 ml PO DAILY 06/19/17 06/19/17 Unknown History Magnesia] Polyethylene Glycol 3350 [Miralax] 17 gm PO DAILY 06/19/17 06/19/17 Unknown History Sertraline [Zoloft] 50 mg PO DAILY 06/19/17 06/19/17 Unknown History Temazepam [Restoril] 15 mg PO QHS 06/19/17 06/19/17 Unknown History - History of Present Illness-Resp Nature of Presenting Problem: Pt is 86 y/o M c chief complaint of increasing shortness of breath at a rehab hospital. Pt was admitted at this hospital from 05/24 to 06/01 for pneumonia, shortness of breath, gi bleed anemia, and new lung mass. Per rehab facility staff, pt has been having progressively worsening of breath in the past two days. Pt denies any chest pain or distress. Pt's son states that he has been taking his lasix but has not had any urinary output for the past two days. Pt has additional hx that includes CHF, COPD, LA, and defib placement. He is followed by his PCP, Dr. Jarad Mandujano, and Dr. Orozco (Pulmonology), Dr. Saucedo (Nephrology). Review of Systems - Adult - REVIEW OF SYSTEMS - ADULT ROS:: limited per condition Constitutional: reports: no symptoms reported. denies: chills, fatique Eyes: reports: no symptoms reported. denies: blurred vision, double vision Ears, Nose, Mouth & Throat: reports: no symptoms reported. denies: ear pain, nose pain, throat pain Cardiovascular: reports: no symptoms reported. denies: chest pain, orthopnea Respiratory: reports: see HPI, shortness of breath Gastrointestinal: reports: no symptoms reported. denies: abdominal pain, nausea Genitourinary: reports: no symptoms reported. denies: dysuria, frequent UTI's Musculoskeletal: reports: no symptoms reported. denies: joint pain, joint swelling Integumentary: reports: no symptoms reported. denies: itching, rash Neurological: reports: no symptoms reported. denies: numbness, paresthesia Psychiatric: reports: no symptoms reported. denies: anxiety, emotional problems Endocrine: reports: no symptoms reported Hematologic/Lymphatic: reports: no symptoms reported Allergic/Immunologic: reports: no symptoms reported All Other Systems: Reviewed and Negative Past History - Adult - PAST MEDICAL HISTORY-ADULT Review of Records: reports: Old Records Reviewed, Nursing Assessment Review, Medications Reviewed, Social history reviewed & non-contributory. Major Childhood Illnesses: reports: denies history Cardiovascular: reports: A-Fib, CAD, HTN, LA, pacemaker Respiratory: reports: denies history Gastrointestinal: reports: other (hernia) Obstetrical/Gynecological: reports: denies history Genitourinary: reports: denies history Musculoskeletal: reports: denies history Neurological: reports: denies history Endocrine/Immune: reports: denies history Other Conditions: reports: denies history - PRIOR SURGERIES/PROCEDURES Surgical/Procedure History: reports: CABG, other (Defibillator) - IMMUNIZATION STATUS Childhood Immunizations: See Nurse Assessment Flu Vaccine: See Nurse Assessment - FAMILY HISTORY Family History: reviewed, not pertinent - SOCIAL HISTORY Smoking: denies Substance Use: none/never Alcohol Use Frequency: never Living Situation: family Physical Exam-General - PHYSICAL EXAM-ADULT Initial Vital Signs Reviewed: Yes - CONSTITUTIONAL General Appearance: alert, mild distress - EYES Eyes: PERRL/EOMI, pink conjunctivae - HEAD, EARS, NOSE, MOUTH & THROAT HENMT: normocephalic/atraumatic, moist mucous membranes, normal ENT inspection - NECK Neck: normal inspection - RESPIRATORY Respiratory: decreased breath sounds, crackles, rales, rhonchi - CARDIOVASCULAR Cardiovascular: normal peripheral pulses, regular rate, rhythm - GASTROINTESTINAL (ABDOMEN) Abdominal Exam: normal bowel sounds, non tender, soft - LYMPHATIC Lymphatic: no adenopathy - MUSCULOSKELETAL Back Exam: normal inspection, no CVA tenderness, no vertebral tenderness Extremity: swelling (LUE), tenderness - SKIN Integumentary: normal color, normal turgor, warm/dry - NEUROLOGIC Neurologic: grossly normal, no motor/sensory deficits - PSYCHIATRIC Psych/Mental Status: normal mood/affect, normal thought content, normal thought process, oriented x 3 Progress - PLAN OF CARE/RESULTS Progress/Plan/Lab Results: Vital Signs - 8 hr 06/19/17 14:09 Temperature 98.0 F Pulse Rate 82 Respiratory Rate 18 Blood Pressure 116/60 O2 Sat by Pulse Oximetry 95 Laboratory Results - last 24 hr 06/19/17 06/19/17 06/19/17 14:42 14:42 14:42 WBC 12.68 H RBC 3.13 L Hgb 9.3 L Hct 29.9 L MCV 95.5 MCH 29.7 MCHC 31.1 L RDW Std Deviation 15.6 H Plt Count 273 MPV 9.4 Immature Gran % (Auto) 1.0 H Neut % (Auto) 84.6 H Lymph % (Auto) 4.2 L [place] % (Auto) 9.8 H Eos % (Auto) 0.2 Baso % (Auto) 0.2 Immature Gran # (Auto) 0.13 H Neut # (Auto) 10.74 H Lymph # (Auto) 0.53 L [place] # (Auto) 1.24 H Eos # (Auto) 0.02 Baso # (Auto) 0.02 PT INR PTT (Actin FS) D-Dimer 1.74 H Sodium 132 L Potassium 4.8 Chloride 94 L Carbon Dioxide 29 Anion Gap 9 BUN 31 H Creatinine 1.3 H Estimated GFR/1.73 m2 52 BUN/Creatinine Ratio 24 Glucose 113 H Calculated Osmolality 272 Calcium 10.4 H Magnesium 1.9 Total Bilirubin 0.28 AST 17 ALT 16 Alkaline Phosphatase 106 Creatine Kinase 16 L Troponin T [id number]-M-Kzcytsldsyc Pept Total Protein 6.3 Albumin 2.8 L Globulin 3.5 Albumin/Globulin Ratio 0.8 Urine Source Urine Color Urine Turbidity Urine pH Ur Specific [place] Urine Protein Ur Glucose (Stick) Ur Ketones (Stick) Urine Blood Urine Nitrite Urine Bilirubin Urobilinogen Dipstick Urine Leukocytes Urine WBC (Auto) Urine RBC (Auto) U Epithel Cells (Auto) Urine Bacteria (Auto) Urine Crystals Small Round Cells Urine Casts Urine Yeast-like Cells 06/19/17 06/19/17 06/19/17 14:42 14:42 14:42 WBC RBC Hgb Hct MCV MCH MCHC RDW Std Deviation Plt Count MPV Immature Gran % (Auto) Neut % (Auto) Lymph % (Auto) [place] % (Auto) Eos % (Auto) Baso % (Auto) Immature Gran # (Auto) Neut # (Auto) Lymph # (Auto) [place] # (Auto) Eos # (Auto) Baso # (Auto) PT 15.4 H INR 1.43 PTT (Actin FS) 29.5 D-Dimer Sodium Potassium Chloride Carbon Dioxide Anion Gap BUN Creatinine Estimated GFR/1.73 m2 BUN/Creatinine Ratio Glucose Calculated Osmolality Calcium Magnesium Total Bilirubin AST ALT Alkaline Phosphatase Creatine Kinase Troponin T 0.050 Aqg-N-Mhdarsmmshu Pept 11011 H Total Protein Albumin Globulin Albumin/Globulin Ratio Urine Source Urine Color Urine Turbidity Urine pH Ur Specific [place] Urine Protein Ur Glucose (Stick) Ur Ketones (Stick) Urine Blood Urine Nitrite Urine Bilirubin Urobilinogen Dipstick Urine Leukocytes Urine WBC (Auto) Urine RBC (Auto) U Epithel Cells (Auto) Urine Bacteria (Auto) Urine Crystals Small Round Cells Urine Casts Urine Yeast-like Cells 06/19/17 15:38 WBC RBC Hgb Hct MCV MCH MCHC RDW Std Deviation Plt Count MPV Immature Gran % (Auto) Neut % (Auto) Lymph % (Auto) [place] % (Auto) Eos % (Auto) Baso % (Auto) Immature Gran # (Auto) Neut # (Auto) Lymph # (Auto) [place] # (Auto) Eos # (Auto) Baso # (Auto) PT INR PTT (Actin FS) D-Dimer Sodium Potassium Chloride Carbon Dioxide Anion Gap BUN Creatinine Estimated GFR/1.73 m2 BUN/Creatinine Ratio Glucose Calculated Osmolality Calcium Magnesium Total Bilirubin AST ALT Alkaline Phosphatase Creatine Kinase Troponin T Zkz-B-Njngavtywxr Pept Total Protein Albumin Globulin Albumin/Globulin Ratio Urine Source CATH Urine Color YELLOW Urine Turbidity TURBID Urine pH 7.0 Ur Specific [place] 1.015 Urine Protein 30 A Ur Glucose (Stick) NEGATIVE Ur Ketones (Stick) NEGATIVE Urine Blood LARGE A Urine Nitrite NEGATIVE Urine Bilirubin NEGATIVE Urobilinogen Dipstick 2 A Urine Leukocytes LARGE A Urine WBC (Auto) 20-40 A Urine RBC (Auto) 20-40 A U Epithel Cells (Auto) <10 Urine Bacteria (Auto) 1+ Urine Crystals NONE SEEN Small Round Cells NONE SEEN Urine Casts NONE SEEN Urine Yeast-like Cells NONE SEEN Orders Category Date Time Status Cardiac Monitoring DIRECTED Care 06/19/17 14:34 Active Saline Loc NOW Care 06/19/17 14:34 Active CHEST-2 VIEWS [RAD] Stat Exams 06/19/17 14:[address] ANGIOGRM/PULMONARY ARTERIES [CT] Stat Exams 06/19/17 16:50 Ordered CBC WITH ELECTRONIC DIFF [HEME] Stat Lab 06/19/17 14:42 Completed CK PROFILE [SP CHEM] Stat Lab 06/19/17 14:42 Completed COMPREHENSIVE METABOLIC PANEL [CHEM] Stat Lab 06/19/17 14:42 Completed D-DIMER [CHEM] Stat Lab 06/19/17 14:42 Completed MAGNESIUM [CHEM] Stat Lab 06/19/17 14:42 Completed PRO B-NATRIURETIC PEPTIDE Stat Lab 06/19/17 14:42 Completed PROTIME WITH INR [COAG] Stat Lab 06/19/17 14:42 Completed PTT [COAG] Stat Lab 06/19/17 14:42 Completed TROPONIN T Stat Lab 06/19/17 14:42 Completed UA NIMS W/REFLEX CULT [URINALYSIS] Stat Lab 06/19/17 15:38 Completed URINE CULTURE [RM] Routine Lab 06/19/17 15:57 Received URINE MANUAL MICROSCOPIC [URINALYSIS] Stat Lab 06/19/17 15:38 Completed Enoxaparin 1 mg/kg [Lovenox 1 mg/kg] Med 06/19/17 16:49 Once 1 each SUBQ NOW ONE EKG [EKG] Stat Ther 06/19/17 14:34 Draft Venous U/S Left Arm Stat Ther 06/19/17 16:49 Ordered Result Diagrams: 06/19/17 14:42 06/19/17 14:42 - XRAY 1 XRAY Study: Chest Impression: Abnormal (FINDINGS: Lung volumes are slightly lower. Stable left dual-chamber pacemaker. Stable sternotomy wires. Stable cardiomegaly. Pulmonary vascularity is slightly increased. There is perhaps slight increase in the alveolar right perihilar infiltrate. Stable large infiltrate in the left midlung. There is a small right-sided effusion stable from prior. IMPRESSION: Worsening from prior.) - CONSULTS/PCP/HOSPITALIST Notification #1 *Consult/PCP/Hospitalist*: Dr. Evangelista (PCP) Time Discussed: 16:53 (Please admit pt to the floor. Order CT PE study and venous ultrasound of LUE and Lovenox 1mg/kg. ) Departure - Departure Date of Disposition Decision: 06/19/17 Time of Disposition Decision: 16:55 DIAGNOSIS: Shortness of breath CHF exacerbation Qualifiers: Congestive heart failure type: unspecified congestive heart failure type Qualified Code(s): I50.9 - Heart failure, unspecified Disposition: ADMITTED INPATIENT 09 Certified Medical Emergency: Emergent Condition: Stable Referrals and Follow-Ups: Amari Orozco MD [ACTIVE STAFF PHYSICIAN] - - Critical Care Note This patient required my direct & personal management of CC.: No Attestation - Physician/ REGINE Attestation Patient care was provided by Advanced Practice Provider:: Yes Advanced Practice Provider:: Carl Jauregui Advanced Practice Provider documentation review:: The Mid-level provider documentation, treatment plan and medical decision making was reviewed by the physician who agrees with all treatment and medical decision making by the MLP. The physician spent face to face time with patient:: No Advanced Practice Provider documentation review:: Supervising physician onsite and consulted in the evaluation and care of this patient. The physician did not have a face to face encounter with the patient.
[2017-06-19 15:43] LABS: URINE SOURCE CATH
[2017-06-19 15:53] LABS: ALBUMIN 2.8 g/dL (3.5-5.0); CALCIUM 10.4 mg/dL (8.8-10.2); MAGNESIUM 1.9 mg/dL (1.5-2.7); POTASSIUM 4.8 mmol/L (3.5-5.1); TOTAL BILIRUBIN 0.28 mg/dL (0.20-1.00); TOTAL PROTEIN 6.3 g/dL (6.3-8.3)
[2017-06-19 15:54] LABS: URINE RBC 20-40 /HPF (<10); URINE WBC 20-40 /HPF (<10)
[2017-06-19 15:56] LABS: BILIRUBIN URINE NEGATIVE (NEGATIVE); BLOOD URINE LARGE (NEGATIVE); COLOR YELLOW; GLUCOSE URINE NEGATIVE (NEGATIVE); PROTEIN URINE 30 mg/dL (NEGATIVE); SP GRAVITY URINE 1.015; TURBIDITY URINE TURBID (CLEAR); UR EPITHELIAL CELLS <10 /HPF (<10); URINE BACTERIA 1+ /HPF; URINE CULTURE NEEDED? YES
[2017-06-19 15:57] LABS: LEUKOCYTES URINE LARGE (NEGATIVE); NITRITE URINE NEGATIVE (NEGATIVE); URINE MICRO REVIEW NEEDED? YES; UROBILINOGEN URINE 2 mg/dL (NORMAL)
[2017-06-19 15:58] LABS: URINE CASTS NONE SEEN; URINE CRYSTALS NONE SEEN; URINE SMALL ROUND CELLS NONE SEEN
[2017-06-19] MEDS ORDERED: LOVENOX 1 MG/KG SUBQ ONE (16:49)
[2017-06-19] MEDS ORDERED: LASIX IV ONE (16:54)
[2017-06-19] MEDS ORDERED: NS 1,000 ML IV ONE (16:57)
[2017-06-19] MEDS ORDERED: LOVENOX SUBQ ONE (17:15)
[2017-06-19 17:19] LABS: ALLEN TEST YES; BE 6.6 mmoll (-3.0-3.0); BLOOD TYPE ARTERIAL; DRAW SITE R BRACHIAL; METHB 1.3 % (0.0-1.5); MODALITY CANNULA; O2(CT) 12.8 mL/dL (15.0-23.0); PCO2(98.6) 40 mmHg (35-45); PO2(98.6) 72 mmHg (60-100); SAMPLE BLOOD; SAO2 97.6 % (95.0-100.0); THB 9.6 g/dL (11.5-17.4); pH(98.6) 7.49 (7.35-7.45)
--- NOTE | 2017-06-19 17:36 | ED EKG INTERP ---
This chart was entered by Catherine Alvarez Scribe, acting as scribe for Ivania Javier MD. EKG Interpretation - EKG Time of EKG reading by physician:: 15:18 EKG Read and Signed by:: Ivania Javier EKG Interpretation (*Must complete 3 of following elements*): Abnormal ( possible lateral infarct, age undetermined inferior infarct, age undetermined) Rate: 84 Rhythm: atrial fibrillation QRS: RBB Attestation - Physician/ REGINE Attestation Patient care was provided by Advanced Practice Provider:: No The physician spent face to face time with patient:: Yes Advanced Practice Provider documentation review:: Supervising physician onsite and consulted in the evaluation and care of this patient. The physician did have a face to face encounter with the patient. This chart was documented by the indicated scribe, (Catherine Alvarez Scribe) and accurately reflects the services I performed and decisions made by me, Ivania Javier MD, as attested by the provider's signature.
[2017-06-19] MEDS ORDERED: CALMOSEPTINE OINTMENT TOP PRN (17:45)
[2017-06-19] MEDS ORDERED: DUONEB (A & A) INH PRN (17:45)
[2017-06-19] MEDS: ROCEPHIN 1 GM in NS 50 ML IV SCH (19:00)
--- NOTE | 2017-06-19 19:00 | HISTORY AND PHYSICAL ---
CHIEF COMPLAINT: Shortness of breath. PRESENT ILLNESS: This is the second fairly recent admission for this 86-year-old, white man who was at rehabilitation and presented to the emergency room because of progressive increase in shortness of breath over a couple of days. He was noted to have moderate edema in both arms worse on the left, and bilateral rales. Chest x-ray revealed effusion at lung bases, and persistent right lung mass. There were numerous problems during the last admission including GI bleeding, anemia, renal failure, and right lung mass in addition to COPD. D-dimer was elevated in the emergency room at greater than 1. Venous Doppler study was done of the arms and revealed a couple of deep venous clots in the left arm. Pulmonary angiogram is ordered. He feels better since admission after 80 mg of Lasix. White blood count was elevated at 12,700. Hematocrit is 29.9. BUN is 31 and creatinine 1.3. ProBNP is 16,336. CPK is 16 with troponin-T 0.05. He is admitted for diuresis, for subcutaneous Lovenox, and for further evaluation to rule out pulmonary embolus. PAST MEDICAL HISTORY: Hospitalized as above a couple of weeks ago. His appetite has decreased over a couple of days and he has been bedridden without ambulating for several days. PRESENT MEDICATIONS: Sertraline 50 mg daily, spironolactone 25 mg daily, Flomax 0.4 mg daily, temazepam 15 mg at bedtime, Crestor 20 mg at bedtime, polyethylene glycol 17 g daily, multivitamin 1 daily, metoprolol succinate ER 100 mg daily, hydrocodone 7.5/325, 1 q.6 hours p.r.n. pain, Uloric 80 mg p.o. daily, and albuterol with Atrovent inhalation t.i.d. ALLERGIES: None known. REVIEW OF SYSTEMS: Significant for chronic renal disease stage 2, COPD, right lung mass discovered last hospitalization. Biopsy has not been possible since he had been on anticoagulants. He was evaluated by Dr. Orozco, Pulmonary, with last hospitalization. Appetite has been fairly good and he has had mild weight gain with fluid retention. FAMILY HISTORY: Unremarkable. SOCIAL HISTORY: Lives alone and has family support. He had been a smoker in the past, but none recently. He denies alcohol usage. PHYSICAL EXAMINATION: VITAL SIGNS: Temperature 98.0 degrees, heart rate 82, respiration 18, blood pressure 116/60, O2 saturation 95% on 2 liters nasal oxygen. GENERAL: Patient is a well-developed, well-nourished, white man with moderate swelling of his left arm and pitting edema. HEENT: Pupils are equal, round, and reactive to light. Pharynx benign with no erythema or exudate. NECK: Supple with no mass or lymphadenopathy. HEART: Regular in rate and rhythm with no murmur, rub or gallop. LUNGS: Rales bilaterally and rhonchi with mild bilateral wheeze. ABDOMEN: Soft with no mass, tenderness, or organomegaly. EXTREMITIES: He has support stockings and there is no significant ankle edema. RECTAL EXAMINATION: Deferred. IMPRESSION: DVT left arm, shortness of breath most likely related to pulmonary edema, because of the shortness of breath pulmonary embolus will be ruled out. He is started on Lovenox, intravenous Lasix, and intravenous antibiotics with Rocephin. cc: Durga Evangelista MD
--- NOTE | 2017-06-19 19:38 | Diag Imaging Result Doc PS360 ---
EXAM: CT ANGIOGRM/PULMONARY ARTERIES HISTORY: sob, elevated d-dimer, lung mass, risk for PE TECHNIQUE: CT of the chest with intravenous contrast and pulmonary arterial protocol with 3-D MIPS as well as dose reduction applied (clarity.) COMMENT: There are no filling defects in the pulmonary arteries. There is atherosclerotic change in the thoracic aorta without evidence of dissection. Slight dilatation is present in the distal descending aorta to a maximum AP diameter of 3.6 cm. This is not changed significantly since 05/31/2017. There is increased pleural fluid particularly on the left side. Some of the fluid on the right is loculated in the fissures. There is no evidence of significant adenopathy. There is extensive opacification of the left upper lobe with volume loss as was present at the time the previous study. There is additional opacity present posteriorly adjacent to the fissure which was not present previously and is presumably additional pneumonitis. There is atelectasis in the left lower lobe. There continues to be atelectatic appearing opacities in the right lower lobe. IMPRESSION: No evidence of pulmonary emboli. Worsening pleural effusions. New right upper lobe opacity which probably represents a focus of pneumonia. Electronically signed by Kendrick Russell 06/19/2017 7:36 PM
[2017-06-19] MEDS: LASIX IV SCH (21:00)
[2017-06-19] MEDS: RESTORIL PO SCH (21:00)
[2017-06-19] MEDS: NORCO-7.5 PO PRN (21:09)
[2017-06-19] MEDS: CRESTOR PO SCH (23:25)
[2017-06-20] MEDS: DUONEB (A & A) INH SCH ×3 (08:41→21:14)
[2017-06-20] MEDS ORDERED: NON-FORMULARY MED (Arginine/Glutamine/Calcium Hmb [Juven Packet] 1 PACKET) PO SCH (09:00)
[2017-06-20] MEDS: MIRALAX PO SCH (10:00)
[2017-06-20] MEDS: ALDACTONE PO SCH (10:01)
[2017-06-20] MEDS: FLOMAX PO SCH (10:01)
[2017-06-20] MEDS: LASIX IV SCH ×2 (10:01→21:16)
[2017-06-20] MEDS: ULORIC PO SCH (10:01)
[2017-06-20] MEDS: MILK OF MAGNESIA PO SCH (10:01)
[2017-06-20] MEDS: TOPROL XL PO SCH (10:01)
[2017-06-20] MEDS: ZOLOFT PO SCH (10:02)
[2017-06-20] MEDS: THERA M PLUS PO SCH (10:02)
--- NOTE | 2017-06-20 10:58 | PROGRESS NOTE ---
DATE: 06/20/2017 VITAL SIGNS: Temperature 97.9 degrees, heart rate 90, respirations 19, blood pressure 103/75, O2 saturation 93% on 3 L nasal oxygen. I and O: Negative 300 mL last 24 hours. SUBJECTIVE: He ate about 50% of his breakfast this morning. Pulmonary angiogram revealed no evidence of pulmonary embolus. There were bilateral pleural effusions and new right upper lobe opacity representing pneumonia. There were atelectatic-appearing opacities in the right lower lung. OBJECTIVE: Extremities: Exam reveals a small decrease in edema of the left arm. Lungs: Continue to have rales and rhonchi on the right. Abdomen: Soft. PLAN: Lab and chest x-ray tomorrow morning. cc: Durga Evangelista MD
[2017-06-20] MEDS: ROCEPHIN 1 GM in NS 50 ML IV SCH (18:19)
[2017-06-20] MEDS: RESTORIL PO SCH (21:13)
[2017-06-20] MEDS: NORCO-7.5 PO PRN (21:13)
[2017-06-20] MEDS: CRESTOR PO SCH (21:20)
[2017-06-21] MEDS: DUONEB (A & A) INH SCH ×4 (03:23→20:09)
[2017-06-21 07:28] LABS: CALCIUM 10.4 mg/dL (8.8-10.2); POTASSIUM 4.8 mmol/L (3.5-5.1)
--- NOTE | 2017-06-21 07:40 | Diag Imaging Result Doc PS360 ---
CHEST-1 VIEW - 06/21/2017 INDICATION: pneumonia TECHNIQUE: COMPARISON: 06/19/2017 FINDINGS: Stable pacemaker and sternotomy wires. Stable cardiomegaly. Pulmonary vascularity remains top normal. Stable large area of focal consolidation in the left midlung. The right midlung infiltrate has improved since prior. IMPRESSION: Improvement in the right midlung infiltrate. Otherwise no change. Electronically signed by Joaquin Serrano 06/21/2017 7:37 AM
--- NOTE | 2017-06-21 08:49 | PROGRESS NOTE ---
DATE: 06/21/2017 VITAL SIGNS: Stable with temperature 98.4, heart rate 72, respiration 18, blood pressure 105/51, O2 saturation on 3 L nasal oxygen 98%. LABORATORY: Sodium 132, potassium 4.8. BUN 33, creatinine 1.3. I and O last 24 hours -2630. Appetite is poor. He is a little less short of breath. There is mild to moderate cough. Chest x-ray, shows improvement with decrease in right mid lung infiltrate. Left mid lung shows large area of focal consolidation, unchanged. This is the side of his lung mass. Biopsy and bronchoscopy could not be done until he is off of anticoagulants. His left arm swelling is decreased. cc: Durga Evangelista MD
[2017-06-21] MEDS: MILK OF MAGNESIA PO SCH (10:00)
[2017-06-21] MEDS: LASIX IV SCH ×2 (10:00→20:30)
[2017-06-21] MEDS: ALDACTONE PO SCH (10:00)
[2017-06-21] MEDS: THERA M PLUS PO SCH (10:00)
[2017-06-21] MEDS: ZOLOFT PO SCH (10:00)
[2017-06-21] MEDS: FLOMAX PO SCH (10:00)
[2017-06-21] MEDS: TOPROL XL PO SCH (10:00)
[2017-06-21] MEDS: ULORIC PO SCH (10:01)
[2017-06-21] MEDS: MIRALAX PO SCH (10:04)
[2017-06-21] MEDS: ROCEPHIN 1 GM in NS 50 ML IV SCH (18:11)
[2017-06-21] MEDS: CRESTOR PO SCH (20:30)
[2017-06-21] MEDS: RESTORIL PO SCH (20:37)
[2017-06-21] MEDS: NORCO-7.5 PO PRN (21:08)
[2017-06-22] MEDS: DUONEB (A & A) INH SCH ×4 (03:30→19:39)
[2017-06-22] MEDS: FLOMAX PO SCH (08:37)
[2017-06-22] MEDS: ULORIC PO SCH (08:37)
[2017-06-22] MEDS: THERA M PLUS PO SCH (08:38)
[2017-06-22] MEDS: MIRALAX PO SCH (08:38)
[2017-06-22] MEDS: LASIX IV SCH ×2 (08:38→20:24)
[2017-06-22] MEDS: ALDACTONE PO SCH (08:38)
[2017-06-22] MEDS: MILK OF MAGNESIA PO SCH (08:38)
[2017-06-22] MEDS: TOPROL XL PO SCH (08:38)
[2017-06-22] MEDS: ZOLOFT PO SCH (08:38)
[2017-06-22 09:06] LABS: HEMATOCRIT 30.9 % (42.0-52.0); HEMOGLOBIN 9.6 g/dL (14.0-18.0); MCH 29.4 PG (27-31); MCHC 31.1 g/dL (33-37); MCV 94.8 FL (81-99); MPV 9.5 FL (7.4-10.4); RBC 3.26 XMIL (4.7-6.1)
--- NOTE | 2017-06-22 09:16 | PROGRESS NOTE ---
DATE: 06/22/2017 SUBJECTIVE: The patient notes he is still tired and fatigued. He has not really been out of bed. Did try to participate with physical therapy yesterday but was too weak to physically get out of bed. They did get him on the side of the bed. Still having some shortness of breath and cough. PHYSICAL: Temp 97.8, pulse 90, BP 110/90, sat 98% on 3 L.General: Patient is an overweight elderly male, who is lying in the bed with head of bed elevated approximately 15-20 degrees. He is awake, alert. He is in no respiratory distress currently. HEENT: Normocephalic atraumatic. ALFREDO. Neck: Supple. No appreciable JVD. CV: Regular rate. No appreciable murmurs. Chest: Decreased breath sounds bilaterally. Occasional rhonchi. No appreciable crackles. Has mild bilateral wheezing. Abdomen: Soft, obese, nondistended. Extremities: No edema. He does move all extremities but generalized weakness. Neurologic: No focal changes. He is awake, alert, appears oriented. DIAGNOSTIC DATA: Pending. ASSESSMENT: 1. DVT left upper extremity. Continue treatment. 2. Shortness of breath. 3. Pulmonary edema. Continue Lasix IV twice a day today. We will check labs, check a chest x- ray and follow. 4. Benign prostatic hypertrophy. 5. Insomnia. 6. Hypercholesterolemia. 7. Chronic pain. 8. Wheezing. Continue breathing treatments and Lasix. 9. Failure to thrive. Continue physical therapy. PLAN: As noted we will continue above. Continue Lasix, physical therapy. Continue to treat the DVT. Further orders as needed. cc: MD Durga Strong MD
[2017-06-22 09:23] LABS: ALBUMIN 2.7 g/dL (3.5-5.0); CALCIUM 10.2 mg/dL (8.8-10.2); POTASSIUM 4.3 mmol/L (3.5-5.1); TOTAL BILIRUBIN 0.22 mg/dL (0.20-1.00); TOTAL PROTEIN 6.6 g/dL (6.3-8.3)
--- NOTE | 2017-06-22 14:20 | Extremity Venous Study ---
PROCEDURE NAME: Venous U/S Left Arm - 06/19/2017 LEFT UPPER EXTREMITY VENOUS ULTRASOUND: REQUEST PHYSICIAN: Dr. Jauregui in the ED. INTERPRETING PHYSICIAN: Durga Howell MD. GEOGRAPHIC INFORMATION SYSTEM SURVEYOR: Naty. INDICATION: The patient has swelling of the left upper extremity. History of lung mass. FINDINGS: The left upper extremity is imaged. The internal jugular, subclavian, axillary, brachial, basilic, cephalic veins are imaged. There is non-compressibility of the left axillary vein. The left cephalic and basilic veins. All other veins are compressible. INTERPRETATION: 1. Deep venous thrombosis involving the left axillary vein. 2. Superficial venous thrombosis involving the left cephalic and basilic veins above the elbow. cc: MD Durga Jiang MD
[2017-06-22] MEDS: ROCEPHIN 1 GM in NS 50 ML IV SCH (18:15)
[2017-06-22] MEDS: RESTORIL PO SCH (20:24)
[2017-06-22] MEDS: CRESTOR PO SCH (20:24)
[2017-06-23] MEDS: DUONEB (A & A) INH SCH ×4 (03:31→20:06)
[2017-06-23] MEDS: LASIX IV SCH (08:29)
[2017-06-23] MEDS: THERA M PLUS PO SCH (08:30)
[2017-06-23] MEDS: FLOMAX PO SCH (08:30)
[2017-06-23] MEDS: ALDACTONE PO SCH (08:30)
[2017-06-23] MEDS: ZOLOFT PO SCH (08:30)
[2017-06-23] MEDS: TOPROL XL PO SCH (08:30)
[2017-06-23] MEDS: MIRALAX PO SCH (08:30)
[2017-06-23] MEDS: MILK OF MAGNESIA PO SCH (08:30)
[2017-06-23] MEDS: ULORIC PO SCH (08:30)
[2017-06-23 09:58] LABS: BASO% 0.2 % (0.0-0.8); EOS# 0.04 X1000 (0.0-0.7); EOS% 0.3 % (0.0-10.0); HEMATOCRIT 32.2 % (42.0-52.0); HEMOGLOBIN 9.8 g/dL (14.0-18.0); IMM GRAN# 0.08 X1000 (0.0-0.04); IMM GRAN% 0.6 % (0.0-0.5); LYMPH# 0.79 X1000 (1.2-3.4); LYMPH% 5.8 % (20.5-51.1); MANUAL DIFF NEEDED? YES; MCH 28.8 PG (27-31); MCHC 30.4 g/dL (33-37); MCV 94.7 FL (81-99); MONO# 0.94 X1000 (0.11-0.59); MONO% 6.9 % (1.7-9.3); MPV 9.4 FL (7.4-10.4); NEUT% 86.2 % (42.2-75.2); PLT 298 X1000 (130-400)
[2017-06-23 10:04] LABS: CALCIUM 10.2 mg/dL (8.8-10.2); POTASSIUM 4.6 mmol/L (3.5-5.1)
[2017-06-23] MEDS: LASIX PO SCH (11:47)
[2017-06-23 11:52] LABS: BANDS 6 % (0-1); LYMPHS 2 % (21-51); MONO 6 % (1-9)
[2017-06-23] MEDS: ROCEPHIN 1 GM in NS 50 ML IV SCH (18:04)
[2017-06-23] MEDS: NORCO-7.5 PO PRN (21:51)
[2017-06-23] MEDS: CRESTOR PO SCH (21:51)
[2017-06-23] MEDS: RESTORIL PO SCH (21:51)
--- NOTE | 2017-06-24 03:41 | PROGRESS NOTE ---
DATE: 06/23/2017 SUBJECTIVE: Patient without any new complaints this morning. He does note that he has some shortness of breath and fatigue. Notes he has not really been able to get out of bed. Physical therapy did get him to the side of the bed but he was too weak to stand. Denies any chest pain or palpitations. Denies any shortness of breath. Denies any GI or issues. PHYSICAL EXAMINATION: Vital Signs: Reviewed. Temperature 98 degrees, pulse 90, respiratory rate 20, BP 118/49. General: Patient is awake, alert, currently in no respiratory distress. HEENT: Normocephalic, atraumatic. Neck: Supple. No JVD. CV: Regular rate. No murmurs. Chest: Clear. Nonlabored. Abdomen: Soft, nondistended. Extremities: Moves all extremities. No edema. Neurologic: No focal changes. Still grossly weak but no focal changes. LABS: Glucose 147, creatinine 1.4, BUN 37. ASSESSMENT: 1. Generalized weakness. 2. Acute renal insufficiency secondary to volume depletion. 3. Deep venous thrombosis of left upper extremity. 4. Shortness of breath. 5. Pulmonary edema. 6. Insomnia. 7. Hypercholesterolemia. PLAN: We will continue patient's medications. We will change his Lasix from 40 IV twice a day to 40 IV once a day. We will recheck labs in the a.m. It appears as though he may be getting a little dehydrated. We will continue physical therapy. cc: MD Durga Strong MD
[2017-06-24] MEDS: DUONEB (A & A) INH SCH ×4 (03:54→20:00)
[2017-06-24] MEDS: TOPROL XL PO SCH (09:08)
[2017-06-24] MEDS: MIRALAX PO SCH (09:08)
[2017-06-24] MEDS: THERA M PLUS PO SCH (09:08)
[2017-06-24] MEDS: MILK OF MAGNESIA PO SCH (09:08)
[2017-06-24] MEDS: FLOMAX PO SCH (09:08)
[2017-06-24] MEDS: LASIX PO SCH (09:08)
[2017-06-24] MEDS: ALDACTONE PO SCH (09:08)
[2017-06-24] MEDS: ULORIC PO SCH (09:08)
[2017-06-24] MEDS: ZOLOFT PO SCH (09:08)
--- NOTE | 2017-06-24 12:46 | PROGRESS NOTE ---
DATE: 06/24/2017 SUBJECTIVE: The patient is disoriented this morning. He did sleep most of the day yesterday and has been asleep mostly today. The family in the room denies any chest pain, palpitations. Denies any GI or issues. States he is still quite tired and is having difficulty getting out of bed. OBJECTIVE: Vital Signs: Temperature 97.7, pulse 70, respiratory rate 16, BP 110/48. General: Patient is sleeping. He is in no distress. He is arousable. HEENT: Normocephalic, atraumatic. ALFREDO. Neck: Supple. No JVD. CV: Regular rate. Chest: Relatively clear. Nonlabored. No wheezing. No crackles. Abdomen: Soft. Extremities: Moves all extremities. Neurologic: No focal changes from previous exams. ASSESSMENT: 1. Right middle lobe pneumonia. Continue antibiotics today. 2. Adult failure to thrive. Continue physical therapy. Will need rehab. 3. Deep venous thrombosis of left upper extremity. Continue treatment. 4. Pulmonary edema, improved. 5. Benign prostatic hypertrophy. 6. High Cholesterol. PLAN: Patient tolerated decreasing Lasix to p.o. yesterday. We will recheck chest x-ray and labs in the a.m. Hopefully, if everything is stable and a is available, he can be transferred to rehab in the morning. cc: MD Durga Strong MD
[2017-06-24] MEDS: ROCEPHIN 1 GM in NS 50 ML IV SCH (18:05)
[2017-06-24] MEDS: RESTORIL PO SCH (21:39)
[2017-06-24] MEDS: CRESTOR PO SCH (21:39)
[2017-06-25] MEDS: DUONEB (A & A) INH SCH ×4 (03:30→19:50)
[2017-06-25 07:12] LABS: HEMATOCRIT 31.5 % (42.0-52.0); HEMOGLOBIN 9.7 g/dL (14.0-18.0); MCH 29.7 PG (27-31); MCHC 30.8 g/dL (33-37); MCV 96.3 FL (81-99); MPV 9.6 FL (7.4-10.4); RBC 3.27 XMIL (4.7-6.1)
[2017-06-25 07:50] LABS: ALBUMIN 2.9 g/dL (3.5-5.0); CALCIUM 11.6 mg/dL (8.8-10.2); MAGNESIUM 2.8 mg/dL (1.5-2.7); TOTAL BILIRUBIN 0.26 mg/dL (0.20-1.00); TOTAL PROTEIN 6.4 g/dL (6.3-8.3)
--- NOTE | 2017-06-25 08:32 | PROGRESS NOTE ---
DATE: 06/25/2017 VITAL SIGNS: Stable with temperature 98.9, heart rate 82, respirations 19, blood pressure 111/48, O2 saturation on 4 L nasal oxygen 97%. LABORATORY: Hemoglobin 9.7, hematocrit 31.5, white blood count 15,200. Sodium 132, potassium 5.0, BUN 43, creatinine 1.4, calcium 11.6, magnesium 2.8. Albumin 2.9. EXAM: Reveals him to be very weak. He has had difficulty getting up with physical therapy. He sits on the side of the bed and becomes more short of breath, then lays back down. Some range of motion exercises have been done with his legs. PLAN: Chest x-ray report is pending this morning. Appetite has been poor. Megace is started p.o. Physical therapy is to be continued. Rehab is planned for discharge within a few days. cc: Durga Evangelista MD
--- NOTE | 2017-06-25 08:46 | Diag Imaging Result Doc PS360 ---
CHEST-2 VIEWS - 06/25/2017 INDICATION: hypoxia TECHNIQUE: COMPARISON: 06/21/2017 FINDINGS: Stable pacemaker and sternotomy wires. Stable cardiomegaly. Stable large left upper lobe opacity concerning for a tumor. Stable small infiltrate/effusion in the right lung base. No new abnormalities. IMPRESSION: No change from prior. Electronically signed by Joaquin Serrano 06/25/2017 8:43 AM
[2017-06-25] MEDS: ULORIC PO SCH (09:56)
[2017-06-25] MEDS: MIRALAX PO SCH (09:57)
[2017-06-25] MEDS: THERA M PLUS PO SCH (09:57)
[2017-06-25] MEDS: FLOMAX PO SCH (09:57)
[2017-06-25] MEDS: ZOLOFT PO SCH (09:57)
[2017-06-25] MEDS: TOPROL XL PO SCH (09:57)
[2017-06-25] MEDS: LASIX PO SCH (09:57)
[2017-06-25] MEDS: ALDACTONE PO SCH (09:57)
[2017-06-25] MEDS: ELIQUIS PO SCH ×2 (10:01→21:28)
[2017-06-25] MEDS: MEGACE PO SCH ×2 (10:01→21:28)
[2017-06-25] MEDS: ROCEPHIN 1 GM in NS 50 ML IV SCH (19:03)
[2017-06-25] MEDS: CRESTOR PO SCH (21:28)
[2017-06-25] MEDS: RESTORIL PO SCH (21:28)
[2017-06-26] MEDS: DUONEB (A & A) INH SCH ×4 (02:34→20:10)
--- NOTE | 2017-06-26 08:46 | PROGRESS NOTE ---
DATE: 06/26/2017 VITAL SIGNS: Vital signs stable with temperature 97.9 degrees, heart rate 79, respirations 20, blood pressure 107/48, O2 saturation 97% on nasal oxygen. SUBJECTIVE: Patient is arousable and continues to be weak. There are scattered rhonchi bilaterally on auscultation of the lungs. He had moderate cough and cleared some mucus with improvement in breath sounds. He is eating a little better. I and O over the last 24 hours is - 510. There is no ankle edema. PLAN: Continue physical therapy. Left lung biopsy and bronchoscopy will be delayed until the patient improves. He is being treated for venous thrombosis in his left arm with Eliquis p.o. cc: Durga Evangelista MD
[2017-06-26] MEDS: MEGACE PO SCH ×2 (10:29→20:26)
[2017-06-26] MEDS: TOPROL XL PO SCH (10:29)
[2017-06-26] MEDS: ULORIC PO SCH (10:29)
[2017-06-26] MEDS: LASIX PO SCH (10:30)
[2017-06-26] MEDS: FLOMAX PO SCH (10:30)
[2017-06-26] MEDS: MIRALAX PO SCH (10:30)
[2017-06-26] MEDS: ZOLOFT PO SCH (10:30)
[2017-06-26] MEDS: ELIQUIS PO SCH ×2 (10:30→20:26)
[2017-06-26] MEDS: THERA M PLUS PO SCH (10:30)
[2017-06-26] MEDS: ALDACTONE PO SCH (10:30)
[2017-06-26] MEDS: ROCEPHIN 1 GM in NS 50 ML IV SCH (18:16)
[2017-06-26] MEDS: CRESTOR PO SCH (20:26)
[2017-06-26] MEDS: RESTORIL PO SCH (20:26)
[2017-06-27] MEDS: DUONEB (A & A) INH SCH ×4 (03:35→20:10)
[2017-06-27 07:06] LABS: MANUAL DIFF NEEDED? NO
[2017-06-27 07:20] LABS: BASO% 0.3 % (0.0-0.8); EOS# 0.09 X1000 (0.0-0.7); EOS% 0.7 % (0.0-10.0); HEMATOCRIT 31.5 % (42.0-52.0); HEMOGLOBIN 9.7 g/dL (14.0-18.0); IMM GRAN# 0.08 X1000 (0.0-0.04); IMM GRAN% 0.6 % (0.0-0.5); LYMPH# 0.88 X1000 (1.2-3.4); LYMPH% 6.9 % (20.5-51.1); MCH 28.7 PG (27-31); MCHC 30.8 g/dL (33-37); MCV 93.2 FL (81-99); MONO# 1.17 X1000 (0.11-0.59); MONO% 9.1 % (1.7-9.3); MPV 9.5 FL (7.4-10.4); NEUT% 82.4 % (42.2-75.2); PLT 388 X1000 (130-400); RBC 3.38 XMIL (4.7-6.1)
[2017-06-27 07:53] LABS: POTASSIUM 4.8 mmol/L (3.5-5.1)
[2017-06-27] MEDS: MEGACE PO SCH ×2 (09:09→20:50)
[2017-06-27] MEDS: ELIQUIS PO SCH ×2 (09:09→20:50)
[2017-06-27] MEDS: LASIX PO SCH (09:09)
[2017-06-27] MEDS: FLOMAX PO SCH (09:09)
[2017-06-27] MEDS: ALDACTONE PO SCH (09:09)
[2017-06-27] MEDS: ULORIC PO SCH (09:10)
[2017-06-27] MEDS: THERA M PLUS PO SCH (09:10)
[2017-06-27] MEDS: ZOLOFT PO SCH (09:10)
[2017-06-27] MEDS: MIRALAX PO SCH (09:10)
[2017-06-27] MEDS: TOPROL XL PO SCH (09:10)
--- NOTE | 2017-06-27 10:48 | PROGRESS NOTE ---
DATE: 06/27/2017 VITAL SIGNS: Stable with temperature 97.9 degrees, heart rate 95, respiration 20, blood pressure 105/62, O2 saturation 96% on nasal oxygen. LABORATORY: Hemoglobin 9.7, hematocrit 31.5, white blood count 12,800 with 82% neutrophils. Sodium 134, potassium 4.8, BUN 51, creatinine 1.3, glucose 101. Patient continues to be weak and somewhat short of breath. He has had minimal cough. Appetite continues to be poor. PLAN: Continue physical therapy, consider [facility] referral for extended care at discharge. He only has 2 days left on rehab allotted days. He may need long-term extended care. Discontinuation of anticoagulants and lung biopsy will be considered if the patient improves and becomes stronger. cc: Durga Evangelista MD
[2017-06-27] MEDS: SOLU-MEDROL IV SCH ×2 (13:13→20:48)
[2017-06-27] MEDS: CALMOSEPTINE OINTMENT TOP PRN (17:46)
[2017-06-27] MEDS: ROCEPHIN 1 GM in NS 50 ML IV SCH (19:24)
[2017-06-27] MEDS: CRESTOR PO SCH (20:50)
[2017-06-27] MEDS: RESTORIL PO SCH (20:54)
[2017-06-27] MEDS: NORCO-7.5 PO PRN (23:02)
[2017-06-28] MEDS: DUONEB (A & A) INH SCH ×4 (03:30→21:00)
[2017-06-28] MEDS: SOLU-MEDROL IV SCH ×3 (05:29→21:17)
--- NOTE | 2017-06-28 07:20 | Diag Imaging Result Doc PS360 ---
EXAM: CHEST-1 VIEW HISTORY: pneumonia, left lung mass TECHNIQUE: Erect AP portable at 0555 COMMENT: There is alveolar opacity in the lower portion of the left upper lobe. There is some generalized increased interstitial opacity and some atelectasis or pneumonia is also present in the right midlung. There is cardiomegaly and increased pulmonary vascularity. Overall, there has been no significant change since 06/25/2017. IMPRESSION: Pulmonary edema, cardiomegaly, atelectasis. Pneumonia and/or mass left upper lobe. Electronically signed by Kendrick Russell 06/28/2017 7:18 AM
[2017-06-28] MEDS: MIRALAX PO SCH (09:07)
[2017-06-28] MEDS: ULORIC PO SCH (09:09)
[2017-06-28] MEDS: TOPROL XL PO SCH (09:09)
[2017-06-28] MEDS: ALDACTONE PO SCH (09:09)
[2017-06-28] MEDS: ZOLOFT PO SCH (09:09)
[2017-06-28] MEDS: FLOMAX PO SCH (09:10)
[2017-06-28] MEDS: MEGACE PO SCH ×2 (09:10→21:18)
[2017-06-28] MEDS: ELIQUIS PO SCH ×2 (09:10→21:18)
[2017-06-28] MEDS: THERA M PLUS PO SCH (09:10)
[2017-06-28] MEDS: LASIX PO SCH (09:18)
--- NOTE | 2017-06-28 10:08 | PROGRESS NOTE ---
DATE: 06/28/2017 OBJECTIVE: Vital Signs: Vital signs stable with temperature 98.4 degrees, heart rate 78, respirations 24, blood pressure 114/53. O2 saturation 95% on 2 liters nasal oxygen. Chest x-ray, more clear on the right, but persistent mass on the left and some pulmonary edema. Lung Examination: Reveals a few rhonchi bilaterally. He has moderate cough. He states that he feels a little better. PLAN: Continue physical therapy. Discontinuation of anticoagulants will be considered for possible biopsy of left lung mass next week. Discussion will be made with Dr. Orozco tomorrow. cc: Durga Evangelista MD
[2017-06-28] MEDS: ROCEPHIN 1 GM in NS 50 ML IV SCH (21:00)
[2017-06-28] MEDS: RESTORIL PO SCH (21:18)
[2017-06-28] MEDS: CRESTOR PO SCH (21:18)
[2017-06-28] MEDS: ROBITUSSIN-DM PO PRN (21:21)
[2017-06-28] MEDS: NORCO-7.5 PO PRN (21:27)
[2017-06-29] MEDS: DUONEB (A & A) INH SCH ×4 (03:08→20:02)
[2017-06-29] MEDS: SOLU-MEDROL IV SCH ×3 (05:47→22:18)
[2017-06-29] MEDS: MIRALAX PO SCH (09:11)
[2017-06-29] MEDS: MEGACE PO SCH ×2 (09:11→22:18)
[2017-06-29] MEDS: ALDACTONE PO SCH (09:11)
[2017-06-29] MEDS: THERA M PLUS PO SCH (09:11)
[2017-06-29] MEDS: FLOMAX PO SCH (09:11)
[2017-06-29] MEDS: ZOLOFT PO SCH (09:12)
[2017-06-29] MEDS: ULORIC PO SCH (09:12)
[2017-06-29] MEDS: TOPROL XL PO SCH (09:12)
[2017-06-29] MEDS: LASIX PO SCH (09:12)
--- NOTE | 2017-06-29 11:44 | PROGRESS NOTE ---
DATE: 06/29/2017 OBJECTIVE: Vital signs: Temperature 98.5, heart rate 105, respirations 15, blood pressure 109/62, O2 sat 96% on 2 L nasal oxygen. General: The patient seems to be getting a little stronger. Lungs: Right lung is fairly clear. Left lung has decreased breath sounds at the left base. Extremities: There is no ankle edema. PLAN: Discontinue Eliquis, discuss possible bronchoscopy and biopsy of his left lung mass next week. cc: Durga Evangelista MD
[2017-06-29] MEDS: ROBITUSSIN-DM PO PRN (12:02)
[2017-06-29] MEDS: ROCEPHIN 1 GM in NS 50 ML IV SCH (18:12)
[2017-06-29] MEDS: CRESTOR PO SCH (22:18)
[2017-06-29] MEDS: RESTORIL PO SCH (22:18)
[2017-06-30] MEDS: DUONEB (A & A) INH SCH ×4 (03:36→20:21)
[2017-06-30] MEDS: SOLU-MEDROL IV SCH ×3 (06:05→22:08)
[2017-06-30 06:57] LABS: CALCIUM 11.1 mg/dL (8.8-10.2); POTASSIUM 4.6 mmol/L (3.5-5.1)
[2017-06-30] MEDS: MIRALAX PO SCH (09:42)
[2017-06-30] MEDS: ZOLOFT PO SCH (09:43)
[2017-06-30] MEDS: LASIX PO SCH (09:43)
[2017-06-30] MEDS: THERA M PLUS PO SCH (09:43)
[2017-06-30] MEDS: ULORIC PO SCH (09:43)
[2017-06-30] MEDS: MEGACE PO SCH ×2 (09:43→22:09)
[2017-06-30] MEDS: ALDACTONE PO SCH (09:43)
[2017-06-30] MEDS: TOPROL XL PO SCH (09:43)
[2017-06-30] MEDS: FLOMAX PO SCH (09:43)
[2017-06-30] MEDS ORDERED: ZOMETA 4 MG in NS 100 ML IV ONE (14:14)
[2017-06-30] MEDS ORDERED: NS 500 ML IV ONE (14:14)
[2017-06-30] MEDS ORDERED: NS 500 ML ONE (15:07)
[2017-06-30] MEDS: ROCEPHIN 1 GM in NS 50 ML IV SCH (18:20)
[2017-06-30] MEDS: NORCO-7.5 PO PRN (22:08)
[2017-06-30] MEDS: CRESTOR PO SCH (22:08)
[2017-06-30] MEDS: RESTORIL PO SCH (22:09)
[2017-07-01] MEDS: DUONEB (A & A) INH SCH ×4 (03:27→20:09)
[2017-07-01] MEDS: SOLU-MEDROL IV SCH ×3 (05:58→20:13)
--- NOTE | 2017-07-01 08:50 | CONSULTATION ---
DATE OF CONSULTATION: 06/30/2017 REQUESTING PHYSICIAN: Dr. Durga Evangelista REASON FOR CONSULTATION: Lung mass, consider bronchoscopy. HISTORY OF PRESENT ILLNESS: Mr. Topete is an 86-year-old white male with COPD, chronic hypoxemic respiratory failure, coronary artery disease, with ischemic cardiomyopathy. He was initially evaluated by this practitioner on 05/31/2017. The patient has a 6.2 x 6.9 cm mass involving the lingula and left upper lobe with some central necrosis. The patient was on Plavix at that time, and was too weak for bronchoscopy. The Plavix was discontinued with anticipation of performing procedure after the rehabilitation stay was finished. The patient was readmitted to the hospital 06/19/2017 with dyspnea. He did have a DVT in his left arm, but no evidence of pulmonary emboli. He does have increasing pleural effusions with a new right upper lobe pneumonia. He continues to have some infiltrate in the right mid-lung zone. PAST MEDICAL HISTORY/PROBLEM LIST: 1. COPD, with chronic hypoxemic respiratory failure. 2. Coronary artery disease, status post bypass grafting, followed by stent placement. 3. Ischemic cardiomyopathy, with an ejection fraction of 30%. 4. Pulmonary artery hypertension with a PA systolic pressure of 60. 5. Multivalvular heart disease, with an echocardiogram revealed filling 3+ mitral regurgitation, 2+ aortic insufficiency. 6. Abdominal aortic aneurysm. 7. Status post pacemaker-defibrillator placement. 8. Dyslipidemia. 9. Chronic kidney disease. 10. BPH. 11. Gout. SOCIAL HISTORY: No recent tobacco or alcohol use listed. FAMILY HISTORY: Noncontributory. REVIEW OF SYSTEMS: Notable for a wet cough, generalized weakness, dyspnea with any exertion. PHYSICAL EXAMINATION: General: Reveals an elderly white male. He has mild work of breathing. Vital Signs: Blood pressure 129/70, heart rate 78, respiration rate 17 oxygen saturation 99% on 2 L per nasal cannula. HEENT: Pupils are equal and reactive. Oropharynx is clear. Neck: Supple. Chest: Reveals coarse rhonchi bilaterally. Cardiac Exam: Distant heart sounds. Normal S1, normal S2. Abdomen: Soft, and without hepatosplenomegaly. Extremities: Without edema. LABORATORIES: Sodium 132, potassium 4.6, chloride 88, bicarbonate 38, BUN 66, creatinine 1.3, calcium is elevated at 11.1. IMPRESSION: An 86-year-old with: 1. Lung mass. 2. Hypercalcemia. 3. Severe chronic obstructive pulmonary disease. 4. Severe underlying heart disease. 5. The patient will not be a candidate for surgery. If lung cancer is identified, he might be a candidate for radiation therapy, but it is doubtful that treatments will change his prognosis. Both the patient and his son have discussed bronchoscopy or no bronchoscopy, and they would like the bronchoscopy performed to determine if he has a lung cancer. RECOMMENDATIONS: 1. Anticipate bronchoscopy on Sunday for diagnostic evaluation of the left upper lobe mass. 2. Will give a dose of Zometa for his hypercalcemia. He will receive a fluid bolus prior to this medication, given his renal insufficiency. 3. Additional recommendations pending hospital course. cc: MD Durga Corral MD
[2017-07-01] MEDS: LASIX PO SCH (09:37)
[2017-07-01] MEDS: ULORIC PO SCH (09:37)
[2017-07-01] MEDS: THERA M PLUS PO SCH (09:37)
[2017-07-01] MEDS: MIRALAX PO SCH (09:37)
[2017-07-01] MEDS: FLOMAX PO SCH (09:37)
[2017-07-01] MEDS: ZOLOFT PO SCH (09:37)
[2017-07-01] MEDS: TOPROL XL PO SCH (09:37)
[2017-07-01] MEDS: MEGACE PO SCH ×2 (09:37→20:13)
[2017-07-01] MEDS: ALDACTONE PO SCH (09:37)
[2017-07-01] MEDS: CRESTOR PO SCH (20:13)
[2017-07-01] MEDS: NORCO-7.5 PO PRN (20:13)
[2017-07-01] MEDS: ROCEPHIN 1 GM in NS 50 ML IV SCH (20:14)
[2017-07-01] MEDS: RESTORIL PO SCH (20:14)
[2017-07-02] MEDS: DUONEB (A & A) INH SCH ×2 (03:20→19:35)
[2017-07-02] MEDS: SOLU-MEDROL IV SCH ×3 (05:31→21:31)
--- NOTE | 2017-07-02 09:14 | PROGRESS NOTE ---
DATE: 07/02/2017 VITAL SIGNS: Stable with temperature 97.8, heart rate 82, respirations 15. Blood pressure 117/59. O2 saturation on 2 liters nasal oxygen 98%. SUBJECTIVE: The patient states he feels better. OBJECTIVE: Lungs are unchanged with decreased breath sounds in the left lower lung field. Dr. Orozco saw the patient over the weekend. PLANS: Bronchoscopy with biopsy of his left lung mass today. Disposition and further treatment will be done based on results of the biopsy. cc: Durga Evangelista MD
[2017-07-02] MEDS ORDERED: XYLOCAINE 1% ONE (10:13)
[2017-07-02] MEDS ORDERED: EPINEPHRINE ONE (10:13)
[2017-07-02] MEDS ORDERED: XYLOCAINE 2% VISCOUS ONE (10:14)
[2017-07-02] MEDS ORDERED: XYLOCAINE 2% ONE (10:14)
[2017-07-02] MEDS ORDERED: SODIUM CHLORIDE 0.9% 20 ML ONE (10:14)
[2017-07-02] MEDS ORDERED: VERSED ONE (10:31)
[2017-07-02] MEDS ORDERED: KETAMINE ONE (10:32)
--- NOTE | 2017-07-02 12:00 | Diag Imaging Result Doc PS360 ---
CHEST-PORTABLE - 07/02/2017 INDICATION: s/p bronchoscopy TECHNIQUE: COMPARISON: 06/28/2017 FINDINGS: Stable sternotomy changes and left-sided pacemaker. Stable cardiomegaly. Stable significant area of consolidation at the left midlung. No new infiltrates. No pneumothorax or large effusion. IMPRESSION: No complication or change from prior. Electronically signed by Joaquin Serrano 07/02/2017 11:58 AM
[2017-07-02] MEDS: CALMOSEPTINE OINTMENT TOP PRN (13:17)
[2017-07-02] MEDS: TOPROL XL PO SCH (15:03)
[2017-07-02] MEDS: ZOLOFT PO SCH (15:03)
[2017-07-02] MEDS: FLOMAX PO SCH (15:03)
[2017-07-02] MEDS: THERA M PLUS PO SCH (15:03)
[2017-07-02] MEDS: ULORIC PO SCH (15:04)
[2017-07-02] MEDS: ALDACTONE PO SCH (15:04)
[2017-07-02] MEDS: LASIX PO SCH (15:04)
[2017-07-02] MEDS: MIRALAX PO SCH (15:04)
[2017-07-02] MEDS: MEGACE PO SCH ×2 (15:05→21:31)
--- NOTE | 2017-07-02 17:11 | OPERATIVE NOTE ---
PROCEDURE DATE: 07/02/2017 PROCEDURE PERFORMED: Bronchoscopy with transbronchial biopsies of the lingula and transbronchial biopsies of the left upper lobe. CLINICAL INDICATIONS: An 86-year-old with a large left upper lobe mass. DESCRIPTION OF PROCEDURE: After informed consent was obtained, patient was brought to the operating room where the procedure was performed. A time-out was performed prior to this procedure and all agreed with the procedure. Topical anesthesia was achieved with viscous lidocaine to the right nostril with 2% lidocaine instilled above the vocal cords and 1% lidocaine instilled below the vocal cords during the procedure. Monitored anesthesia care was provided by the anesthesia services, who utilized ketamine and Versed. When topical anesthesia and sedation were achieved, bronchoscope was advanced through the right nostril to the level of the vocal cords. The vocal cords were smooth and without lesions. The bronchoscope was advanced into the trachea. There was increase in mucopurulent secretions in the tracheobronchial tree, but no endotracheal lesions were identified. Airways to the right upper lobe were patent without lesions. The medial wall of the bronchus intermedius just prior to entering the right middle lobe was edematous with mild change in mucosal color, but without overt tumor. Airways to the right middle lobe and right lower lobe were patent without lesions. The bronchoscope was directed to the left upper lobe. Airways to the anterior and apical posterior segment of the left upper lobe were patent. Airways to the lingular segment were patent. Airways to the lower lobe were patent. From previous review of CT scan, bronchoscopies were performed from the lingular segment. Biopsies were performed in a transbronchial fashion. The forceps was placed in the segment and advanced until obstruction could be felt. The biopsies were taken using this technique. There was bleeding associated with the biopsies and patient received installation of epinephrine along with observation until the bleeding stopped. The bronchoscope was then directed to the anterior segment of the left upper lobe. A similar fashion was followed and transbronchial biopsies were taken from the anterior segment. The forceps was advanced until obstruction could be felt. Biopsies were taken. 3-4 biopsies were taken from this segment, but the patient had a slow steady desaturation during the procedure and was slow to recover. The bronchoscope was retracted when patient's oxygen saturation reached 70% and patient was allowed to recover. The procedure was subsequently terminated. The patient was arousable and coughing when I left the room. A postprocedure chest x-ray will be obtained. IMPRESSION: 1. Status post transbronchial biopsies from the lingula and the anterior segment of the left upper lobe. 2. No endobronchial lesion seen and biopsy was performed in a blind fashion. 3. Transient oxygen desaturation as per above. 4. Minor bleeding as per above, which resolved with installation of topical epinephrine. cc: MD Durga Corral MD
[2017-07-02] MEDS: NORCO-7.5 PO PRN (18:41)
[2017-07-02] MEDS: CRESTOR PO SCH (21:31)
[2017-07-02] MEDS: ROCEPHIN 1 GM in NS 50 ML IV SCH (21:31)
[2017-07-02] MEDS: RESTORIL PO SCH (21:31)
[2017-07-03] MEDS: DUONEB (A & A) INH SCH ×4 (03:25→19:55)
[2017-07-03] MEDS: SOLU-MEDROL IV SCH ×3 (05:36→20:22)
--- NOTE | 2017-07-03 08:34 | PROGRESS NOTE ---
DATE: 07/03/2017 VITAL SIGNS: Stable with temperature 97.5, heart rate 83, respirations 16, blood pressure 115/52, O2 saturation on 2 liters nasal oxygen 99%. SUBJECTIVE: Transbronchial biopsies were performed by Dr. Orozco in the left lingular area. Pathology reports are pending. The patient is somnolent this morning. There continues to be decrease in breath sounds in the left mid and lower lung castillo. PLAN: Restart Eliquis. Physical therapy will continue with progressive ambulation. DISPOSITION: Will most likely be home. The son is encouraged to talk with a social work faculty member and think about supplies needed at home such as hospital bed and bedside commode. They already have a walker and wheelchair at home. Depending on the results of biopsies, hospice will be considered. cc: Durga Evangelista MD
[2017-07-03] MEDS: MIRALAX PO SCH (08:45)
[2017-07-03] MEDS: ZOLOFT PO SCH (08:46)
[2017-07-03] MEDS: FLOMAX PO SCH (08:46)
[2017-07-03] MEDS: MEGACE PO SCH ×2 (08:46→20:22)
[2017-07-03] MEDS: LASIX PO SCH (08:46)
[2017-07-03] MEDS: THERA M PLUS PO SCH (08:46)
[2017-07-03] MEDS: TOPROL XL PO SCH (08:46)
[2017-07-03] MEDS: ALDACTONE PO SCH (08:46)
[2017-07-03] MEDS: ULORIC PO SCH (08:46)
[2017-07-03] MEDS ORDERED: ELIQUIS PO SCH (09:00)
[2017-07-03] MEDS: CALMOSEPTINE OINTMENT TOP PRN (11:59)
[2017-07-03] MEDS: CRESTOR PO SCH (20:22)
[2017-07-03] MEDS: ROCEPHIN 1 GM in NS 50 ML IV SCH (20:22)
[2017-07-03] MEDS: NORCO-7.5 PO PRN (20:30)
[2017-07-04] MEDS: DUONEB (A & A) INH SCH ×4 (03:25→19:59)
[2017-07-04] MEDS: SOLU-MEDROL IV SCH ×3 (05:40→21:27)
[2017-07-04] MEDS: RESTORIL PO SCH ×2 (05:41→21:27)
[2017-07-04 07:30] LABS: CALCIUM 9.3 mg/dL (8.8-10.2); POTASSIUM 4.7 mmol/L (3.5-5.1)
[2017-07-04 08:35] LABS: INR 1.45; PROTIME 15.6 Seconds (9.2-11.7); PTT 21.2 Seconds (22.0-36.0)
--- NOTE | 2017-07-04 10:26 | Diag Imaging Result Doc PS360 ---
EXAM: CHEST-2 VIEWS HISTORY: POST BIOPSY TECHNIQUE: Inspiratory expiratory upright chest COMMENT: There is no evidence of pneumothorax or pleural fluid collection. The appearance of the chest has not changed appreciably since 07/02/2017. IMPRESSION: No evidence of pneumothorax or pleural fluid collection. Electronically signed by Kendrick Russell 07/04/2017 10:24 AM
--- NOTE | 2017-07-04 11:06 | PROGRESS NOTE ---
DATE: 07/04/2017 VITAL SIGNS: Vital signs stable with temperature 98.3 degrees, heart rate 74, respirations 16, blood pressure 113/61, O2 saturation 96% on nasal oxygen. LABORATORY: Sodium 133 potassium 4.7, BUN 65, creatinine 1.3, glucose 147. SUBJECTIVE: Dr. Orozco proceeded with transthoracic lung biopsy this morning since path reports have not shown etiology of tumor. Chest x-ray following the procedure revealed no pneumothorax or fluid collections. He has mild hemoptysis. Bronchial washings a few days ago reveal Pseudomonas aeruginosa sensitive to Levaquin. His IV Rocephin is changed to p.o. Levaquin 500 mg daily. He had an episode of 20 beat ventricular tachycardia early this morning, which was asymptomatic while he was sleeping. He has no chest discomfort this morning. Discussion was made with the family concerning resuscitation. The family wishes to proceed with cardioversion or intubation if necessary at this time. He has a Living Will, but this states that resuscitation is only to be withheld if his condition is terminal. PLAN: Await biopsy reports and consider discharge home either with home health or hospice. cc: Durga Evangelista MD
[2017-07-04] MEDS: ULORIC PO SCH (11:17)
[2017-07-04] MEDS: MIRALAX PO SCH (11:17)
[2017-07-04] MEDS: FLOMAX PO SCH (11:18)
[2017-07-04] MEDS: ALDACTONE PO SCH (11:18)
[2017-07-04] MEDS: TOPROL XL PO SCH (11:18)
[2017-07-04] MEDS: ZOLOFT PO SCH (11:18)
[2017-07-04] MEDS: THERA M PLUS PO SCH (11:18)
[2017-07-04] MEDS: MEGACE PO SCH ×2 (11:18→21:27)
--- NOTE | 2017-07-04 11:27 | Diag Imaging Result Doc PS360 ---
EXAM: CT GUIDED BIOPSY LUNG HISTORY: lung mass, bronch non diagnostic TECHNIQUE: CT-guided lung biopsy COMPARISON: None. FINDINGS: Prior to the procedure I discussed the risk and benefits with the patient and his family. Primary risks include: Bleeding, infection, and pneumothorax which could require chest tube. Questions were answered. The patient and his family then gave consent. A permit was signed. The patient was placed supine on the CT table. The left upper lobe mass was localized. An anterior approach was taken. This area was cleaned and draped in normal fashion. Lidocaine was used as a local anesthetic. An 11 cm 20-gauge Temno needle and introducer were advanced into the mass on the first try. Five separate biopsies specimens were obtained. These were sent to pathology. Introducer needle were withdrawn. The patient had no complaints during or following the procedure. IMPRESSION: CT-guided biopsy with no immediate postprocedural complications. Electronically signed by Booker Solorio 07/04/2017 11:25 AM
[2017-07-04] MEDS: LEVAQUIN PO SCH (13:12)
--- NOTE | 2017-07-04 14:08 | Diag Imaging Result Doc PS360 ---
EXAM: CHEST-2 VIEWS HISTORY: post ct biospy TECHNIQUE: AP upright inspiratory expiratory chest COMMENT: There is no evidence of pneumothorax. There has been no significant change in the appearance of the chest since the original set of post biopsy images at 0956. IMPRESSION: No evidence of postbiopsy complication. Electronically signed by Kendrick Russell 07/04/2017 2:05 PM
[2017-07-04] MEDS: NORCO-7.5 PO PRN (19:30)
[2017-07-04] MEDS: CRESTOR PO SCH (21:27)
[2017-07-05] MEDS: DUONEB (A & A) INH SCH ×4 (02:59→20:10)
[2017-07-05] MEDS: SOLU-MEDROL IV SCH ×3 (04:24→21:18)
[2017-07-05] MEDS: NORCO-7.5 PO PRN ×3 (07:23→23:54)
--- NOTE | 2017-07-05 08:41 | PROGRESS NOTE ---
DATE: 07/05/2017 VITAL SIGNS: Stable with temperature 97.9 degrees, heart rate 86, respirations 20, blood pressure 112/65. O2 saturation on nasal oxygen 2 L 100%. I and O negative 1205 last 24 hours. PO intake is poor. He had 1 soft bowel movement yesterday. He has no specific complaints except for some soreness at the biopsy site, left chest. Initial biopsy, transbronchial on 07/02 was suspicious for malignancy, but no definite tissue diagnosis was obtained. Hopefully, the transthoracic biopsies yesterday will reveal the correct diagnosis of his left lung mass. When that is determined, Oncology consult will be obtained before discharge. cc: Durga Evangelista MD
[2017-07-05] MEDS: MEGACE PO SCH ×2 (10:00→21:18)
[2017-07-05] MEDS: TOPROL XL PO SCH (10:00)
[2017-07-05] MEDS: MIRALAX PO SCH (10:00)
[2017-07-05] MEDS: ALDACTONE PO SCH (10:00)
[2017-07-05] MEDS: ULORIC PO SCH (10:00)
[2017-07-05] MEDS: LEVAQUIN PO SCH (10:00)
[2017-07-05] MEDS: THERA M PLUS PO SCH (10:00)
[2017-07-05] MEDS: FLOMAX PO SCH (10:00)
[2017-07-05] MEDS: ZOLOFT PO SCH (10:01)
[2017-07-05] MEDS: CRESTOR PO SCH (21:18)
[2017-07-05] MEDS: RESTORIL PO SCH (21:18)
[2017-07-06] MEDS: DUONEB (A & A) INH SCH ×3 (03:21→15:09)
[2017-07-06] MEDS: SOLU-MEDROL IV SCH (06:16)
[2017-07-06] MEDS: NORCO-7.5 PO PRN (06:17)
[2017-07-06] MEDS: FLOMAX PO SCH (08:32)
[2017-07-06] MEDS: ALDACTONE PO SCH (08:32)
[2017-07-06] MEDS: ZOLOFT PO SCH (08:32)
[2017-07-06] MEDS: ULORIC PO SCH (08:33)
[2017-07-06] MEDS: MEGACE PO SCH (08:33)
[2017-07-06] MEDS: LEVAQUIN PO SCH (08:33)
[2017-07-06] MEDS: TOPROL XL PO SCH (08:33)
[2017-07-06] MEDS: THERA M PLUS PO SCH (08:33)
[2017-07-06] MEDS: MIRALAX PO SCH (08:34)
--- NOTE | 2017-07-06 08:37 | PROGRESS NOTE ---
DATE: 07/06/2017 VITAL SIGNS: Temperature 98.4 degrees, heart rate 100, respiration 18, blood pressure 108/58, O2 saturation 97% on 2 liters nasal oxygen. SUBJECTIVE: Path report is pending for transthoracic biopsy of the left lung. Discussion is made with the patient and family. Hospice will be started with [facility]. Home equipment will be obtained including hospital bed, bedside commode, wheelchair and shower chair. Oncology consult will be obtained with Dr. Bradley concerning treatment. Consideration will be made for discharge this afternoon to his home with hospice and hired care. He still has difficulty in standing, even with assistance. He is able to sit on the side of the bed for a few minutes, but tires easily. Appetite has been fair. Long-term prognosis is poor, but he has been doing better over the past several days. It seems the steroids have helped some. He is changed from Solu- Medrol to p.o. prednisone today. cc: Durga Evangelista MD
[2017-07-06] MEDS ORDERED: PREDNISONE PO SCH (09:00)
--- NOTE | 2017-07-06 13:57 | CONSULTATION ---
DATE OF CONSULTATION: 07/06/2017 REQUESTING PHYSICIAN: Consultation is requested by Durga Evangelista MD. CONSULTATION: For lung cancer. HISTORY OF PRESENT ILLNESS: Mr. Topete is an 86-year-old, male who presented to [facility] Emergency Department back on 06/19/2017 complaining of progressive shortness of breath. He also had some edema in both arms. He was found to have a left upper extremity DVT. They also went ahead and did a pulmonary arteriogram given his shortness of breath and presence of DVT, which actually did not find any PTE. Patient has a known lung mass that was actually found on a CT scan done back in the end of May. 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 Patient has also undergone a CT-guided biopsy of a left upper lobe mass. The final path from that is currently pending. Patient had a large mass per CT scan from 05/31/2017, which was 6.9 x 6.2 cm. Currently, it appears the plan is for the patient to potentially go home on hospice either later today or in the next couple days. It appears that the patient and family do not want to pursue any treatment. Of course, final path is not returned. The patient is in his room currently with his son and grandson. PAST SURGICAL/MEDICAL HISTORY: 1. COPD. 2. Coronary artery disease. 3. Ischemic cardiomyopathy. 4. Pulmonary arterial hypertension. 5. Abdominal aortic aneurysm. 6. Status post pacemaker defibrillator placement. 7. Dyslipidemia. 8. Chronic kidney disease. 9. Benign prostatic hypertrophy. 10. Gout. SOCIAL HISTORY: Patient currently lives alone, but has lots of family support. The patient is a . He is an ex-smoker and denies any current use of tobacco. He denies any alcohol or illicit drug use. FAMILY HISTORY: Significant for hypertension and heart disease. REVIEW OF SYSTEMS: A 12 point review of systems has completed and is negative except for what was expressed in the HPI. PHYSICAL EXAMINATION: Vital Signs: Temperature 97.8, heart rate 115, respirations 18, blood pressure 120/73, O2 saturation 100% on 3 L nasal cannula. General: This is an obese, male, lying in hospital bed with his family at bedside. He does not appear to be in any acute distress. HEENT: Head appears to be normocephalic, atraumatic. Eyes: Pupils equal, round, reactive. Ears, nose, throat, neck, and mouth: Oral mucosa appears to be normal. Gross auditory acuity is diminished. Trachea is midline. Cardiovascular: S1-S2 heard. Tachycardia noted. Respiratory: Chest has some coarse breath sounds bilaterally. Gastrointestinal: Abdomen is soft and nontender. Obese. Positive bowel sounds. Extremities: He does have some trace edema throughout. Neurologic: Patient is lethargic, but is arousable. He is hard of hearing. No obvious focal motor deficits noted. LABS AND STUDIES: As per the HPI. In addition to that, there is sodium 133, potassium 4.7, chloride 91, CO2 of 30, BUN 65, creatinine 1.3, glucose 147. ASSESSMENT AND PLAN: 1. Lung mass. Path from CT-guided biopsy is currently pending as per above. However, patient had a large mass as noted. We discussed with the patient and his family today that hospice does seem appropriate. They are currently trying to make arrangements. The patient does have several comorbidities and does not seem like an ideal candidate for treatment. We will follow up on the final path results. 2. Chronic obstructive pulmonary disease. Patient is currently receiving nebulizer treatments as well as IV antibiotics and steroids. Continue at this time. 3. Coronary artery disease with heart failure. Currently well managed. Continue current management. 4. Decreased appetite. Patient has taken Megace. 5. Upper extremity deep vein thrombosis. The patient is currently on Eliquis. Continue. We want to thank you for this consult and allowing us to participate in Mr. Topete' care. Will continue to follow along. Dictated by PETER Sommer for Marely Bradley MD cc: MD Durga Cazares MD I have seen and examined the patient and the above note reflects my evaluation , assessment and plan. Marely Bradley MD [facility] CENTERLeticia
[2017-07-06 16:08] VITALS: BP 116/56
--- NOTE | 2017-07-07 07:15 | DISCHARGE SUMMARY ---
ADMISSION DATE: 06/19/2017 DISCHARGE DATE: 07/06/2017 FINAL DIAGNOSES: 1. Right middle lobe pneumonia. 2. Chronic systolic congestive heart failure. 3. Chronic kidney disease stage 3. 4. Left lingular squamous cell carcinoma. CONSULTATIONS: Dr. Orozco and Dr. Bradley, oncologist. DISPOSITION: Home with hospice care. MEDICAL EQUIPMENT PROVIDED AT HOME: Includes hospital bed, wheelchair, bedside commode, and shower chair. He is sent home with oxygen 2-3 L nasal p.r.n. Also, he is sent home with a Bahena catheter. DISCHARGE MEDICATIONS: Usual medication at home plus Levaquin 500 mg (7) 1 daily and prednisone 10 mg b.i.d. (30). HISTORY: This is one of several fairly recent [facility] admissions for this 86-year-old, white man with cough and shortness of breath, and also swelling in his left arm. He presented to the emergency room and was found to have right middle lobe pneumonia as well as DVT in axillary veins of his left arm. He was admitted for intravenous antibiotics and for anticoagulation, and also for further evaluation of the left lung mass. He had been at rehab prior to admission and was awaiting outpatient bronchoscopy, but with development of pneumonia and DVT this was delayed. INITIAL LABORATORY: Hemoglobin 9.3, hematocrit 29.9, white blood count 59110 with 84.6 neutrophils. Sodium was 132, potassium 5, BUN 43, creatinine 1.4, magnesium 3.8, calcium 11.6, and albumin 2.9. HOSPITAL COURSE: Chest x-ray showed right middle lobe pneumonia. There was persistent mass on the left side, lingular segment. He was initially treated with intravenous Rocephin and Lovenox. Lovenox was changed after a couple of days to Eliquis 2.5 mg b.i.d. Swelling improved in his left arm, and infiltrate improved on chest x-ray. Decision was made to discontinue anticoagulants for an attempt at biopsy left lung mass. Bronchoscopy was done by Dr. Orozco on 07/02 and no endobronchial lesions were seen. Transbronchial biopsies were done which revealed nonspecific results suggestive of malignancy. Additional biopsies, transthoracic were done by Dr. Solorio under CT guidance. This revealed squamous carcinoma. Biopsy reports return today, but were not available for oncology consultation. Nurse practitioner for Dr. Bradley saw the patient this afternoon and will follow the patient when receives the biopsy reports. He has been fairly stable over the past few days. There was some increased congestion and shortness of breath that improved with addition of Solu-Medrol. This was changed to prednisone a couple of days ago. He continues to be fairly stable with O2 sats on 2-3 L of oxygen above 95%. Physical therapy assisted in trying to ambulate and get up in a chair, but he became short of breath after sitting on side of bed for a few minutes with two people attempting to stand him up, he was unable to stand. Discussion was made with family about disposition. They wanted hospice and hired nursing help at home, only [facility] if absolutely necessary. He is discharged home by ambulance today with hospice care on the above medications. He will be monitored through hospice and additional conversation will be made with Dr. Bradley concerning further treatment. ADDENDUM: BUN and creatinine on 07/04 were 65 and 1.3 respectively. This will be monitored as an outpatient. There is no ankle edema at this time. cc: Durga Evangelista MD
== END 2017-07-06 18:30 | disposition hospice, home (50) ==
LOC: SUPCPDRO → ED 13:26 → 3N 22:20
PROVIDERS: ADMIT Family Medicine; ATTEND Family Medicine